=== PATIENT | female | born 1930 | race Caucasian/White ===

== ENCOUNTER 2018-01-09 12:56 | Observation (INO) ==
[2018-01-09 13:31] LABS: Basophils # 0.1 K/mm3 (0-0.2); Basophils % 0.8 % (0.1-2.0); Eosinophils # 0.2 K/mm3 (0.0-0.4); Eosinophils % 1.7 % (0.1-12.0); Hematocrit 31.4 % (37.0-47.0); Hemoglobin 10.4 g/dL (12.2-16.2); Lymphocytes # 1.1 K/mm3 (0.7-4.5); Lymphocytes % 12.9 K/mm3 (10-50); Mean Corpuscular HGB Conc 33.1 g/dL (31.8-35.4); Mean Corpuscular Hemoglobin 30.7 pg (27.0-31.2); Mean Corpuscular Volume 92.9 fl (81-99); Mean Platelet Volume 8.4 fl (7.4-10.4); Monocytes # 0.5 K/mm3 (0.1-1.0); Monocytes % 6.1 % (1.7-9.3); Neutrophils # 6.7 K/mm3 (1.8-7.8); Neutrophils % 78.4 % (37.0-80.0); Platelet Count 259 K/mm3 (142-424); Red Blood Count 3.38 M/mm3 (4.20-5.40); Red Cell Distribution Width 14.2 % (11.5-17.5); White Blood Count 8.6 K/mm3 (4.8-10.8)
--- NOTE | 2018-01-09 13:34 | Emergency Department Note ---
ED Disposition Clinical Impression: Lung nodule, Dehydration, Syncope, Renal insufficiency Clinical Impression: (Ruled Out): Pre-syncope Disposition: Still a Patient Condition on Discharge: Fair Referrals: Liu Norwood MD [Primary Care Provider] - - Critical Care Critical Care Time: No Attestation: On 01/09/18, the high probability of a clinically significant, sudden or life threatening deterioration of the following system(s) required my full and direct attention, intervention and personal management. The time I documented below is in addition to time spent performing reported procedures but includes the following listed in this critical care notation. Medical Decision Making - Tai Inquiry Pt receiving controlled substance: No Tai was queried for this patient: No Vital Signs: 01/09/18 12:57 01/09/18 14:26 01/09/18 15:00 Temperature 98.1 F 97.6 F 97.6 F Temperature Source Temporal Artery Scan Oral Oral Pulse Rate [Right Brachial] 89 75 75 Respiratory Rate 18 16 16 Blood Pressure [Right Arm] 80/48 112/67 112/67 Blood Pressure Mean [Right Arm] 58 82 82 Blood Pressure Source [Right Arm] Automatic Cuff Automatic Cuff Automatic Cuff Blood Pressure Position [Right Arm] Sitting Supine Sitting 02 Sat by Pulse Oximetry 98 98 98 Oxygen Delivery Method Room Air Room Air Room Air - Lab Data Lab Results 01/09/18 13:13: WBC 8.6, RBC 3.38 L, Hgb 10.4 L, Hct 31.4 L, MCV 92.9, MCH 30.7 , MCHC 33.1, RDW 14.2, Plt Count 259, MPV 8.4, Neut % (Auto) 78.4, Lymph % (Auto ) 12.9, [place] % (Auto) 6.1, Eos % (Auto) 1.7, Baso % (Auto) 0.8, Neut # (Auto) 6.7, Lymph # (Auto) 1.1, [place] # (Auto) 0.5, Eos # (Auto) 0.2, Baso # (Auto) 0.1 01/09/18 13:13: Sodium 141, Potassium 3.3 L, Chloride 102, Carbon Dioxide 30, Anion Gap 12.3, BUN 28 H, Creatinine 1.23 H, Estimated Creat Clear 32, Estimated GFR 41 L, Est GFR ( Amer) 50 L, Glucose 99, Calcium 8.0 L, Total Bilirubin 0.3, AST 15, ALT 10 L, Alkaline Phosphatase 150 H, Total Protein 5.7 L, Albumin 2.4 L, Globulin 3.3 H, Albumin/Globulin Ratio 0.7 L, Lipase 301 01/09/18 13:13: Total Creatine Kinase 27, CK-MB (CK-2) < 0.5, CK-MB (CK-2) Rel Index 1.9, Troponin I < 0.02 Result diagrams: 01/09/18 13:13 01/09/18 13:13 Orders (Tests/Meds): ED MEDICATIONS Discontinued Medications Generic Name Dose Route Start Last Admin Trade Name Freq PRN Reason Stop Dose Admin Sodium Chloride 500 mls @ 999 mls/hr 01/09/18 13:45 Sod Chlor 0.9% 1000ml Bag IV 01/09/18 14:15 .Q31M CECILY ORDERS Category Date Time Status Urinalysis and Microscopic Stat Lab 01/09/18 13:06 Ordered - Radiology Data #1 Image(s): Chest Image Reviewed: Yes I reviewed the patient's radiology image, Yes I have reviewed radiologist's interpretation Preliminary Findings: Normal/NAD - CT Data CT Scan: Head, C-Spine, Abdomen, Pelvis Time Received: 15:23 Preliminary Findings: Abnormal Findings Narrative: IMPRESSION: 1. No acute fracture. 2. Multilevel cervical spondylosis with degenerative disc disease and facet and uncovertebral hypertrophy. Please see above for detailed description at each level. 3. Prominent central disc osteophyte complex at C6-C7 causing severe canal stenosis. This is slightly eccentric towards the right. 4. Indeterminate 8 mm right upper lobe nodule. Consider [address] follow-up chest without and with contrast - ECG Data Tracing #1 Sinus rhythm 71/min, left axis deviation, no acute findings ECG initial impression date: 01/09/18 ECG initial impression time: 13:00 Medical Decision Narrative: The patient received IV fluids with improvement of her blood pressure. She had labs significant for renal insufficiency hypokalemia and dehydration. Spoke with her primary care physician Dr. norwood who agreed to admit her for observation and rule out VT protocol. He had an uneventful ED stay. Syncope HPI - General Chief Complaint: Weakness Stated Complaint: weakness,n/v Time Seen by Provider: 01/09/18 13:00 Mode of Arrival: Ambulatory Limitations: No Limitations Description of Symptoms (Recalled from ER Triage Doc. by RN): weakness, nausea and vomiting since this morning early. decr bp; possibly due to medicine change - History of Present Illness HPI narrative: 87 years old white female with history of shingles and postherpetic neuralgia. Recently she was given steroids by and she is on her last doses. She has developed nausea. Today while she was sitting with her daughter she felt hot nauseous head leaned back and felt like she is having presyncopal. There was no loss of consciousness she recovered immediately called the ambulance and was brought for evaluation. He denies having chest pain abdominal pain vomiting or diarrhea hematemesis coffee-ground emesis melanotic stool or bleeding per rectum. MD complaint: felt faint Onset (ago): minute(s) (30 minutes prior to arrival.) Duration of episode: 5 (No LOC. ) -: minutes(s) Prodromal symptoms: other (nausea. ) Witnessed: yes - by bystander (her daughter. ) Context: at rest Injuries sustained associated with event: none Current symptoms: none Treatments prior to arrival: other (steroids. ) - Related Data Home Medications Medication Instructions Recorded Confirmed Aspirin 81 mg PO DAILY 11/25/17 01/09/18 Ferrous Sulfate 325 mg PO BID 11/25/17 01/09/18 Furosemide [Furosemide 20mg Tab] 20 mg PO DAILY 11/25/17 01/09/18 Lisinopril [Lisinopril 5mg Tablet] 2.5 mg PO DAILY 11/25/17 01/09/18 predniSONE [Deltasone 1mg tablet] 1 mg PO DAILY 11/25/17 01/09/18 Cyanocobalamin/Folic Acid [B-12 1 each SL DAILY 01/09/18 01/09/18 1,000 Mcg Sub Tablet] Pregabalin [Lyrica 100mg Cap] 50 mg PO TID 01/09/18 01/09/18 Allergies Allergy/AdvReac Type Severity Reaction Status Date / Time No Known Allergies Allergy Verified 11/25/17 11:29 [facility] History I have reviewed the patient's past medical history: Yes Medical History: Reports:: Coronary Artery Disease, Gall Bladder Disease, Gastroesophageal Reflux Disease(GERD), Hypertension, Renal Insufficiency Denies:: Cancer, Cerebrovascular Accident, Dementia, Diabetes Mellitus Type 1 , Diabetes Mellitus Type 2, MRSA Other Medical History: Reports: Anemia, Arthritis Other Surgeries: Yes: Appendectomy, Colostomy, EGD, Other (Cholecystectomy) Amputation: No Fractures: No Comment: cholecystectomy - Social History Educational Level: Completed High School Smoking Status: Never smoker Alcohol Intake: never Occupational Status: retired Housing: other Household Members: children Comment: patient and son live in the same household. Other family members live close as well - Psychiatric History Expresses thoughts of harming self/others: None Suicide Plan Description: No Plan Family Hx:: Coronary Artery Disease, Hyperlipidemia, Hypertension ROS Obtained: Yes All systems reviewed & no additional complaints Physical Exam - General General appearance: alert, in no apparent distress - Head Head exam: atraumatic, normocephalic, normal inspection - Eye Eye exam: Present: normal appearance, PERRL, EOMI - ENT ENT exam: Present: normal exam, normal oropharynx, mucous membranes moist, TM's normal bilaterally, normal external ear exam - Neck Neck exam: Present: normal inspection, full ROM, trachea midline. Absent: tenderness, meningismus, lymphadenopathy - Chest Chest inspection: Present: normal inspection, symmetric chest wall rise. Absent : tenderness - Respiratory Respiratory exam: Present: normal lung sounds bilaterally. Absent: respiratory distress - Cardiovascular Cardiovascular exam: Present: regular rate, normal rhythm. Absent: JVD - Abdominal Exam Abdominal exam: Present: soft, normal bowel sounds. Absent: distention, tenderness, guarding, rebound, rigidity - Extremities Exam Extremities exam: Present: normal inspection, full ROM, normal capillary refill. Absent: calf tenderness - Back Exam Back exam: Present: normal inspection. Absent: tenderness - Neurological Exam Neurological exam: Present: alert, oriented X3, CN II-XII intact, motor sensory deficit, reflexes normal - Psychiatric Psychiatric exam: Present: normal affect, normal mood - Skin Skin exam: Present: warm, dry, intact, normal color - Lymphatic Lymphatic Findings: no adenopathy
[2018-01-09 13:40] LABS: Creatine Kinase 27 U/L (26-192); Potassium 3.3 mmoL/L (3.5-5.1)
[2018-01-09 14:08] LABS: Anion Gap 12.3 mEq/L (5-15)
[2018-01-09 14:09] LABS: Albumin Level 2.4 gm/dL (3.4-5.0); Albumin/Globulin Ratio 0.7 (1.1-1.8); Bilirubin,Total 0.3 mg/dL (0.2-1.0); Globulin 3.3 gm/dl (1.3-3.2); Total Protein,Serum 5.7 gm/dL (6.4-8.2)
--- NOTE | 2018-01-09 16:24 | History & Physical Report ---
*Admission Date: 01/09/18 *Chief complaint: near syncope *History of present illness: Ms. Garcia is an 87yo female who has recently had shingles of the right chest and axillary area. She has had postherpetic neuralgia and has been on gabapentin, but is now on lyrica because the gabapentin was not controlling her pain. She was also recently started on prednisone on 12/31/17. Her daughter states she fell getting off of the toilet this am and landed on her face. The patient states she did not have a syncopal episode and remembers talking to her son to have him come and get her up off the floor. She states she did not hurt anything in the fall other than the fact she had a abrasion on the left forearm that was cleaned and a dressing was applied. She went back to sleep and seemed fine this am. Her daughter states she used her walker and walked outside and was sitting with them when all at once her eyes rolled back. Her daughter states she doesn't think she actually passed out because she did respond as soon as they grabbed her shoulder and said her name. They are concerned some of the medications she has been taking could be causing this. EMS was called and they did tell the family her BP was low. She was evaluated in the ER and will be admitted overnight for observation and IVF's as she appeared slightly dehydrated. [facility] History Medical History: Reports:: Coronary Artery Disease, Gall Bladder Disease, Gastroesophageal Reflux Disease(GERD), Hypertension, Renal Insufficiency Denies:: Cancer, Cerebrovascular Accident, Dementia, Diabetes Mellitus Type 1 , Diabetes Mellitus Type 2, MRSA Other Medical History: Reports: Anemia, Arthritis Comment: postherpetic neuralgia Other Surgeries: Yes: Appendectomy, Cholecystectomy, Colonoscopy, EGD Amputation: No Fractures: No - *Social History Educational Level: Completed High School Smoking Status: Never smoker Alcohol Intake: never Occupational Status: retired Housing: other Household Members: children - Psychiatric History Expresses thoughts of harming self/others: None Suicide Plan Description: No Plan *Family Hx:: Coronary Artery Disease, Hyperlipidemia, Hypertension Review of Systems - Constitutional Denies body ache(s), Denies fever(s), Denies weakness - Eyes Denies blurry vision, Denies double vision - ENT Denies nasal congestion, Denies sore throat - *Cardiovascular Denies chest pain, Denies shortness of breath, Denies fast heart rate - *Respiratory Denies cough, Denies shortness of breath - *Gastrointestinal Reports nausea, Denies abdominal pain, Denies loose stools, Denies vomiting - *Genitourinary Denies difficulty urinating, Denies painful urination - *Musculoskeletal Denies joint pain, Denies body aches - *Neurologic Denies confusion, Denies headache(s), Denies seizure-like activity, Denies dizziness, Denies weakness Meds Home Medications Medication Instructions Recorded Confirmed Type Aspirin 81 mg PO DAILY 11/25/17 01/09/18 History Ferrous Sulfate 325 mg PO BID 11/25/17 01/09/18 History Furosemide [Furosemide 20mg Tab] 20 mg PO DAILY 11/25/17 01/09/18 History Lisinopril [Lisinopril 5mg Tablet] 2.5 mg PO DAILY 11/25/17 01/09/18 History predniSONE [Deltasone 1mg tablet] 1 mg PO DAILY 11/25/17 01/09/18 History Cyanocobalamin/Folic Acid [B-12 1 each SL DAILY 01/09/18 01/09/18 History 1,000 Mcg Sub Tablet] Pregabalin [Lyrica 100mg Cap] 50 mg PO TID 01/09/18 01/09/18 History Allergies Allergy/AdvReac Type Severity Reaction Status Date / Time No Known Allergies Allergy Verified 11/25/17 11:29 Exam Vital signs and Labs for Last 24 Hours: Temp Pulse Resp BP Pulse Ox 97.6 F 75 16 112/67 98 01/09/18 16:08 01/09/18 16:08 01/09/18 16:08 01/09/18 16:08 01/09/18 15:00 Laboratory Results - last 24 hr 01/09/18 13:13: WBC 8.6, RBC 3.38 L, Hgb 10.4 L, Hct 31.4 L, MCV 92.9, MCH 30.7 , MCHC 33.1, RDW 14.2, Plt Count 259, MPV 8.4, Neut % (Auto) 78.4, Lymph % (Auto ) 12.9, [place] % (Auto) 6.1, Eos % (Auto) 1.7, Baso % (Auto) 0.8, Neut # (Auto) 6.7, Lymph # (Auto) 1.1, [place] # (Auto) 0.5, Eos # (Auto) 0.2, Baso # (Auto) 0.1 01/09/18 13:13: Sodium 141, Potassium 3.3 L, Chloride 102, Carbon Dioxide 30, Anion Gap 12.3, BUN 28 H, Creatinine 1.23 H, Estimated Creat Clear 32, Estimated GFR 41 L, Est GFR ( Amer) 50 L, Glucose 99, Calcium 8.0 L, Total Bilirubin 0.3, AST 15, ALT 10 L, Alkaline Phosphatase 150 H, Total Protein 5.7 L, Albumin 2.4 L, Globulin 3.3 H, Albumin/Globulin Ratio 0.7 L, Lipase 301 01/09/18 13:13: Total Creatine Kinase 27, CK-MB (CK-2) < 0.5, CK-MB (CK-2) Rel Index 1.9, Troponin I < 0.02 I & O for Last 24 hours: Intake & Output 01/07/18 01/08/18 01/09/18 01/10/18 11:59 11:59 11:59 11:59 Weight 132 lb - Constitutional no acute distress - *Routine HEENT Exam Head: Present: normocephalic, atraumatic Eye: Present: EOMI, PERRL ENT: Present: mucous membranes moist - *Routine Neck Exam Present: supple, full ROM - *Routine Respiratory Exam Present: CTA bilaterally - *Routine Cardiovascular Exam Present: RRR - *Routine Abdominal Exam Present: soft, normoactive bowel sounds. Absent: tenderness - *Routine Extremities Exam Absent: edema - *Routine Skin Exam Comments: abrasion left forearm - *Routine Neurological Exam Present: alert, oriented X3, CN II-XII intact. Absent: sensory deficit, motor deficit H&P: Result - Labs Labs: - Impressions Abdomen/pelvis CT 1. Mild prominence of the pancreatic tail. This is a question clinical significance. Mild pancreatitis is a consideration. Please correlate with appropriate laboratory values. 2. Mild prominence of the right renal collecting system etiology indeterminate. 3. Otherwise negative unenhanced CT scan abdomen pelvis C-Spine CT 1. No acute fracture. 2. Multilevel cervical spondylosis with degenerative disc disease and facet and uncovertebral hypertrophy. Please see above for detailed description at each level. 3. Prominent central disc osteophyte complex at C6-C7 causing severe canal stenosis. This is slightly eccentric towards the right. 4. Indeterminate 8 mm right upper lobe nodule. Consider [address] follow-up chest without and with contrast CXR - nothing acute Head CT - nothing acute Assessment and Plan (1) Near syncope Current visit: Yes Status: Acute Category: Medical Code(s): R55 - Syncope and collapse (2) Lung nodule Current visit: Yes Status: Acute Category: Medical Code(s): R91.1 - Solitary pulmonary nodule (3) Renal insufficiency Current visit: Yes Status: Acute Category: Medical Code(s): N28.9 - Disorder of kidney and ureter, unspecified (4) Fall Current visit: No Status: Acute Qualifiers: Encounter type: initial encounter Qualified Code(s): W19.XXXA - Unspecified fall, initial encounter Category: Medical Code(s): W19.XXXA - Unspecified fall, initial encounter (5) Arthritis Current visit: No Status: Chronic Category: Medical Code(s): M19.90 - Unspecified osteoarthritis, unspecified site (6) GERD (gastroesophageal reflux disease) Current visit: No Status: Chronic Category: Medical Code(s): K21.9 - Gastro-esophageal reflux disease without esophagitis (7) HTN (hypertension) Current visit: No Status: Chronic Category: Medical Code(s): I10 - Essential (primary) hypertension (8) Hypokalemia Current visit: Yes Status: Acute Category: Medical Code(s): E87.6 - Hypokalemia (9) Dehydration Current visit: Yes Status: Acute Category: Medical Code(s): E86.0 - Dehydration - Assessment and plan all Dx Assessment and Plan for all problems:: The patient's BP improved with hydration. She feels fine at this time. She will be admitted for observation. Will place a court monitor.
[2018-01-10 04:27] LABS: Basophils # 0.1 K/mm3 (0-0.2); Basophils % 0.8 % (0.1-2.0); Eosinophils # 0.1 K/mm3 (0.0-0.4); Eosinophils % 2.2 % (0.1-12.0); Hematocrit 32.1 % (37.0-47.0); Hemoglobin 10.2 g/dL (12.2-16.2); Lymphocytes # 1.3 K/mm3 (0.7-4.5); Lymphocytes % 22.3 K/mm3 (10-50); Mean Corpuscular HGB Conc 31.6 g/dL (31.8-35.4); Mean Corpuscular Hemoglobin 29.3 pg (27.0-31.2); Mean Corpuscular Volume 92.7 fl (81-99); Mean Platelet Volume 8.8 fl (7.4-10.4); Monocytes # 0.4 K/mm3 (0.1-1.0); Monocytes % 6.9 % (1.7-9.3); Neutrophils # 3.9 K/mm3 (1.8-7.8); Neutrophils % 67.8 % (37.0-80.0); Platelet Count 237 K/mm3 (142-424); Red Blood Count 3.46 M/mm3 (4.20-5.40); White Blood Count 5.8 K/mm3 (4.8-10.8)
[2018-01-10 04:50] LABS: Anion Gap 8.7 mEq/L (5-15); Potassium 3.7 mmoL/L (3.5-5.1)
--- NOTE | 2018-01-10 07:22 | Pharmacy Consult Notes ---
[facility] Pharmacy VTE Monitoring - Patient Demographics Admission date: 01/09/18 Report Date: 01/10/18 Time: 07:21 Allergies/Adverse Reactions: Patient Allergies No Known Allergies Allergy (Verified 11/25/17 11:29) Height: 1.63 m Weight: 53.099 kg Patient Problems: Current Active Problems Lung nodule (Acute) Dehydration (Acute) Syncope (Acute) Renal insufficiency (Acute) Near syncope (Acute) Hypokalemia (Acute) - VTE Risk Labs: VTE Related Lab Results Hgb 10.2 g/dL (12.2-16.2) L 01/10/18 04:20 Hct 32.1 % (37.0-47.0) L 01/10/18 04:20 Plt Count 237 K/mm3 (142-424) 01/10/18 04:20 BUN 26 mg/dL (7-18) H 01/10/18 04:20 Creatinine 1.20 mg/dL (0.55-1.02) H 01/10/18 04:20 Estimated Creat Clear 29 mL/min (0-300) 01/10/18 04:20 Was VTE Risk Assessment Performed: Yes VTE Score: 3 VTE Risk Level: Low Risk Clinical Trial Participant: No - Prophylaxis VTE Prophylaxis Ordered?: Yes Types of VTE Prophylaxis: TEDS Knee High
--- NOTE | 2018-01-10 08:46 | Progress Note ---
Internal Medicine - PN: Subj *Date: 01/10/18 *Time: 08:44 Interval history: Patient states she feels fine this a.m. She has had no more presyncopal episodes. She denies any pain. She states she slept well and ate a good breakfast. Exam Vital signs and Labs for Last 24 Hours: Temp Pulse Resp BP Pulse Ox 97.8 F 79 20 124/62 98 01/10/18 04:00 01/10/18 06:00 01/10/18 04:00 01/10/18 04:00 01/10/18 04:00 Laboratory Results - last 24 hr 01/09/18 13:13: WBC 8.6, RBC 3.38 L, Hgb 10.4 L, Hct 31.4 L, MCV 92.9, MCH 30.7 , MCHC 33.1, RDW 14.2, Plt Count 259, MPV 8.4, Neut % (Auto) 78.4, Lymph % (Auto ) 12.9, [place] % (Auto) 6.1, Eos % (Auto) 1.7, Baso % (Auto) 0.8, Neut # (Auto) 6.7, Lymph # (Auto) 1.1, [place] # (Auto) 0.5, Eos # (Auto) 0.2, Baso # (Auto) 0.1 01/09/18 13:13: Sodium 141, Potassium 3.3 L, Chloride 102, Carbon Dioxide 30, Anion Gap 12.3, BUN 28 H, Creatinine 1.23 H, Estimated Creat Clear 32, Estimated GFR 41 L, Est GFR ( Amer) 50 L, Glucose 99, Calcium 8.0 L, Total Bilirubin 0.3, AST 15, ALT 10 L, Alkaline Phosphatase 150 H, Total Protein 5.7 L, Albumin 2.4 L, Globulin 3.3 H, Albumin/Globulin Ratio 0.7 L, Lipase 301 01/09/18 13:13: Total Creatine Kinase 27, CK-MB (CK-2) < 0.5, CK-MB (CK-2) Rel Index 1.9, Troponin I < 0.02 01/09/18 16:38: Troponin I < 0.02 01/09/18 22:10: Troponin I 0.02 01/10/18 04:20: Troponin I < 0.02 01/10/18 04:20: WBC 5.8 D, RBC 3.46 L, Hgb 10.2 L, Hct 32.1 L, MCV 92.7, MCH 29.3, MCHC 31.6 L, RDW 14.0, Plt Count 237, MPV 8.8, Neut % (Auto) 67.8, Lymph % (Auto) 22.3, [place] % (Auto) 6.9, Eos % (Auto) 2.2, Baso % (Auto) 0.8, Neut # ( Auto) 3.9, Lymph # (Auto) 1.3, [place] # (Auto) 0.4, Eos # (Auto) 0.1, Baso # (Auto ) 0.1 01/10/18 04:20: Sodium 140, Potassium 3.7, Chloride 105, Carbon Dioxide 30, Anion Gap 8.7, BUN 26 H, Creatinine 1.20 H, Estimated Creat Clear 29, Estimated GFR 43 L, Est GFR ( Amer) 52 L, Glucose 109 H, Magnesium 1.9 I & O for Last 24 hours: Intake & Output 01/07/18 01/08/18 01/09/18 01/10/18 11:59 11:59 11:59 11:59 Intake Total 1090 / 1090 Output Total 600 / 600 Balance 490 / 490 Weight 117 lb 1 oz - Constitutional no acute distress - *Routine Respiratory Exam Present: CTA bilaterally - *Routine Cardiovascular Exam Present: RRR - *Routine Abdominal Exam Present: soft, normoactive bowel sounds. Absent: tenderness - *Routine Extremities Exam Absent: edema Assessment and Plan (1) Near syncope Current visit: Yes Status: Acute Category: Medical Code(s): R55 - Syncope and collapse (2) Lung nodule Current visit: Yes Status: Acute Category: Medical Code(s): R91.1 - Solitary pulmonary nodule (3) Renal insufficiency Current visit: Yes Status: Acute Category: Medical Code(s): N28.9 - Disorder of kidney and ureter, unspecified (4) Fall Current visit: No Status: Acute Qualifiers: Encounter type: initial encounter Qualified Code(s): W19.XXXA - Unspecified fall, initial encounter Category: Medical Code(s): W19.XXXA - Unspecified fall, initial encounter (5) Arthritis Current visit: No Status: Chronic Category: Medical Code(s): M19.90 - Unspecified osteoarthritis, unspecified site (6) GERD (gastroesophageal reflux disease) Current visit: No Status: Chronic Category: Medical Code(s): K21.9 - Gastro-esophageal reflux disease without esophagitis (7) HTN (hypertension) Current visit: No Status: Chronic Category: Medical Code(s): I10 - Essential (primary) hypertension (8) Hypokalemia Current visit: Yes Status: Acute Category: Medical Code(s): E87.6 - Hypokalemia (9) Dehydration Current visit: Yes Status: Acute Category: Medical Code(s): E86.0 - Dehydration - Assessment and plan all Dx Assessment and Plan for all problems:: Patient has done well throughout the night. Possible discharge home today. Will discuss with Dr. Edward.
[2018-01-10 09:27] VITALS: BP 126/66
--- NOTE | 2018-01-12 22:03 | Discharge Summary ---
General - General Admission date:: 01/09/18 Discharge date: 01/10/18 HPI HPI: Ms. Garcia is an 87yo female who has recently had shingles of the right chest and axillary area. She has had postherpetic neuralgia and has been on gabapentin, but is now on lyrica because the gabapentin was not controlling her pain. She was also recently started on prednisone on 12/31/17. Her daughter states she fell getting off of the toilet this am and landed on her face. The patient states she did not have a syncopal episode and remembers talking to her son to have him come and get her up off the floor. She states she did not hurt anything in the fall other than the fact she had a abrasion on the left forearm that was cleaned and a dressing was applied. She went back to sleep and seemed fine this am. Her daughter states she used her walker and walked outside and was sitting with them when all at once her eyes rolled back. Her daughter states she doesn't think she actually passed out because she did respond as soon as they grabbed her shoulder and said her name. They are concerned some of the medications she has been taking could be causing this. EMS was called and they did tell the family her BP was low. She was evaluated in the ER and will be admitted overnight for observation and IVF's as she appeared slightly dehydrated. Hospital Course Hospital Course: The patient's imaging showed nothing acute. Her BP improved with rehydration. She did well overnight and had no further presyncopal episodes. She was stable to be discharged home. Objective Vital signs: Temp Pulse Resp BP Pulse Ox 97.8 F 60 18 126/66 98 01/10/18 08:00 01/10/18 10:00 01/10/18 08:00 01/10/18 08:00 01/10/18 08:00 Narrative: - Constitutional no acute distress - *Routine HEENT Exam Head: Present: normocephalic, atraumatic Eye: Present: EOMI, PERRL ENT: Present: mucous membranes moist - *Routine Neck Exam Present: supple, full ROM - *Routine Respiratory Exam Present: CTA bilaterally - *Routine Cardiovascular Exam Present: RRR - *Routine Abdominal Exam Present: soft, normoactive bowel sounds. Absent: tenderness - *Routine Extremities Exam Absent: edema - *Routine Skin Exam Comments: abrasion left forearm - *Routine Neurological Exam Present: alert, oriented X3, CN II-XII intact. Absent: sensory deficit, motor deficit DS: Diagnosis - Discharge Diagnosis (1) Near syncope Status: Acute (2) Lung nodule Status: Acute (3) Renal insufficiency Status: Acute (4) Fall Status: Acute (5) Arthritis Status: Chronic (6) GERD (gastroesophageal reflux disease) Status: Chronic (7) HTN (hypertension) Status: Chronic (8) Hypokalemia Status: Acute (9) Dehydration Status: Acute Discharge Plan - Patient Discharge Instructions ACTIVITY: Continue current activity DIET: continue same diet Patient Instructions: DI for Syncope in Adults (Fainting) - Follow up Plan Follow up with: Liu Edward MD [Primary Care Provider] - 1 week Disposition: Home, Self-Prison Medications: Home Medications Medication Instructions Recorded Confirmed Type Aspirin 81 mg PO DAILY 11/25/17 01/09/18 History Ferrous Sulfate 325 mg PO BID 11/25/17 01/09/18 History Furosemide [Furosemide 20mg Tab] 20 mg PO DAILY 11/25/17 01/09/18 History Lisinopril [Lisinopril 5mg Tablet] 2.5 mg PO DAILY 11/25/17 01/09/18 History Cyanocobalamin/Folic Acid [B-12 1 each SL DAILY 01/09/18 01/09/18 History 1,000 Mcg Sub Tablet] Pregabalin [Lyrica 100mg Cap] 50 mg PO TID 01/09/18 01/09/18 History Gabapentin [Gabapentin 100mg Cap] 200 mg PO TID 01/10/18 01/10/18 History predniSONE [Deltasone 1mg tablet] 1 mg PO DAILY 01/10/18 01/10/18 History Prescriptions/Medication Reconciliation: Continue Lisinopril [Lisinopril 5mg Tablet] 2.5 mg PO DAILY Furosemide [Furosemide 20mg Tab] 20 mg PO DAILY Ferrous Sulfate 325 mg PO BID Cyanocobalamin/Folic Acid [B-12 1,000 Mcg Sub Tablet] 1 each SL DAILY Gabapentin [Gabapentin 100mg Cap] 200 mg PO TID Aspirin 81 mg PO DAILY Pregabalin [Lyrica 100mg Cap] 50 mg PO TID predniSONE [Deltasone 1mg tablet] 1 mg PO DAILY
== END 2018-01-10 10:25 | disposition home or self-care (01) ==
LOC: 2ND 12:56 → ER 12:56 → 2ND 16:04
PROVIDERS: ADMIT Family Medicine; ATTEND Family Medicine

== ENCOUNTER 2018-12-08 16:47 | Observation (INO) ==
--- NOTE | 2018-12-08 17:02 | Emergency Department Note ---
ED Disposition Condition on Discharge: Good - Critical Care Critical Care Time: No <Rip Crump - Last Filed: 12/08/18 20:20> <Jovani Bryant - Last Filed: 12/08/18 21:16> Clinical Impression: UTI due to extended-spectrum beta lactamase (ESBL) producing Escherichia coli, Renal insufficiency Abdominal pain Qualifiers: Abdominal location: unspecified location Qualified Code(s): R10.9 - Unspecified abdominal pain Disposition: Admitted as Observation Referrals: Liu Edward MD [Primary Care Provider] - Attestation: On 12/08/18, the high probability of a clinically significant, sudden or life threatening deterioration of the following system(s) required my full and direct attention, intervention and personal management. The time I documented below is in addition to time spent performing reported procedures but includes the following listed in this critical care notation. Medical Decision Making - Medical Records Medical records reviewed: Yes: I reviewed the patient's medical records. - Tai Inquiry Pt receiving controlled substance: No - Lab Data Result diagrams: 12/08/18 17:08 12/08/18 17:08 <Rip Crump - Last Filed: 12/08/18 20:20> - Lab Data Result diagrams: 12/08/18 17:08 12/08/18 17:08 - Physician Consults Physician Consulted: douglas Reason -: Admission <Jovani Bryant - Last Filed: 12/08/18 21:16> Vital Signs: 12/08/18 16:52 12/08/18 17:05 12/08/18 17:17 Temperature 98.0 F Temperature Source Oral Pulse Rate [Right Radial] 61 64 68 Respiratory Rate 18 16 17 Blood Pressure [Right Arm] 121/64 129/59 L Blood Pressure [Right Radial Artery] 117/64 Blood Pressure Mean [Right Arm] 83 82 Blood Pressure Mean [Right Radial Artery] 81 Blood Pressure Source [Right Arm] Automatic Cuff Automatic Cuff Blood Pressure Source [Right Radial Artery] Automatic Cuff Blood Pressure Position [Right Arm] Sitting Sitting Blood Pressure Position [Right Radial Artery] Sitting 02 Sat by Pulse Oximetry 100 100 100 Oxygen Delivery Method Room Air Room Air Room Air 12/08/18 17:30 12/08/18 18:00 12/08/18 19:39 Temperature Temperature Source Pulse Rate [Right Radial] 63 67 71 Respiratory Rate 15 18 20 Blood Pressure [Right Arm] 133/68 145/67 H 187/86 H Blood Pressure [Right Radial Artery] Blood Pressure Mean [Right Arm] 89 93 119 Blood Pressure Mean [Right Radial Artery] Blood Pressure Source [Right Arm] Automatic Cuff Automatic Cuff Automatic Cuff Blood Pressure Source [Right Radial Artery] Blood Pressure Position [Right Arm] Sitting Supine Sitting Blood Pressure Position [Right Radial Artery] 02 Sat by Pulse Oximetry 100 97 99 Oxygen Delivery Method Room Air Room Air - Lab Data Lab Results 12/08/18 17:08: WBC 10.2, RBC 4.00 L, Hgb 11.9 L, Hct 35.3 L, MCV 88.1, MCH 29.7, MCHC 33.7, RDW 13.1, Plt Count 314, MPV 8.1, Neut % (Auto) 87.8 H, Lymph % (Auto) 7.3 L, [place] % (Auto) 3.1, Eos % (Auto) 1.3, Baso % (Auto) 0.5, Neut # (Auto) 8.9 H, Lymph # (Auto) 0.7, [place] # (Auto) 0.3, Eos # (Auto) 0.1, Baso # (Auto) 0.1, Total Counted 100, Neutrophils % (Manual) 90 H, Lymphocytes % (Manual) 8 L, Monocytes % (Manual) 2, Platelet Estimate Normal, RBC Morphology Normal 12/08/18 17:08: Sodium 138, Potassium 4.7, Chloride 100, Carbon Dioxide 27, Anion Gap 15.7 H, BUN 33 H, Creatinine 1.71 H, Estimated Creat Clear 19, Estimated GFR 28 L, Est GFR ( Amer) 34 L, Glucose 135 H, Calcium 8.8, Total Bilirubin 0.3, AST 19, ALT 11 L, Alkaline Phosphatase 136 H, Total Protein 7.3, Albumin 3.6, Globulin 3.7 H, Albumin/Globulin Ratio 1.0 L, Lipase 394 H 12/08/18 17:08: Lactate 2.6 H 12/08/18 17:30: Urine Color Yellow, Urine Appearance Clear, Urine pH 6.0, Ur Specific [place] 1.010, Urine Protein Negative, Urine Glucose (UA) Negative, Urine Ketones Negative, Urine Blood Trace-l, Urine Nitrate Negative, Urine Bilirubin Negative, Urine Urobilinogen 0.2, Ur Leukocyte Esterase Negative, Urine RBC Occasional, Urine WBC Occasional, Urine Bacteria Trace Orders (Tests/Meds): ED MEDICATIONS Generic Name Dose Route Start Last Admin Trade Name Nikolas PRN Reason Stop Dose Admin Sodium Chloride 1,000 mls @ 999 mls/hr 12/08/18 17:00 12/08/18 17:35 Sod Chlor 0.9% 1000ml Bag IV 12/08/18 18:00 999 mls/hr .Q1H1M CECILY Administration ORDERS Category Date Time Status CT abdomen pelvis wo con Stat Cat Scan 12/08/18 19:20 Taken Lactic Acid Follow Up (RFLX 1) Stat Lab 12/08/18 21:10 Ordered Blood Culture Stat Micro 12/08/18 17:08 Received General Adult HPI - General Source of Information: Patient <Rip Crump - Last Filed: 12/08/18 20:20> <Jovani Bryant - Last Filed: 12/08/18 21:16> - General Stated complaint: dizziness Time Seen by Provider: 12/08/18 16:59 - History of Present Illness HPI narrative: mild to mod abdominal cramps and diarrhea w/o blood today after taking antibiotics for uti, +general weakness and dizzy, no loc, no fever, no emesis ( Rip Crump) - Related Data Home Medications Medication Instructions Recorded Confirmed Aspirin 81 mg PO DAILY 11/25/17 12/08/18 Ferrous Sulfate 325 mg PO BID 11/25/17 12/08/18 Furosemide [Furosemide 20mg Tab] 20 mg PO DAILY 11/25/17 12/08/18 Lisinopril [Lisinopril 5mg Tablet] 2.5 mg PO DAILY 11/25/17 12/08/18 Cyanocobalamin/Folic Acid [B-12 1 each SL DAILY 01/09/18 12/08/18 1,000 Mcg Sub Tablet] Gabapentin [Gabapentin 100mg Cap] 200 mg PO TID 01/10/18 12/08/18 Benzonatate [Benzonatate 200mg Cap] 200 mg PO TID 11/30/18 12/08/18 Cetirizine HCl [Zyrtec] 10 mg PO DAILY 11/30/18 12/08/18 Citalopram Hydrobromide [Celexa 10 mg PO DAILY 11/30/18 12/08/18 10mg Tablet] Potassium Chloride [Klor-Con] 20 meq PO DAILY 11/30/18 12/08/18 predniSONE [Prednisone 2.5mg 2.5 mg PO DAILY 11/30/18 12/08/18 Tab] Previous Rx's Medication Instructions Recorded Meclizine HCl [Meclizine 25mg Tab] 25 mg PO Q8HP PRN #30 tab 11/01/18 Allergies Allergy/AdvReac Type Severity Reaction Status Date / Time No Known Allergies Allergy Verified 11/25/17 11:29 [facility] [place] History Medical History: Reports:: Coronary Artery Disease, Gall Bladder Disease, Gastroesophageal Reflux Disease(GERD), Hypertension, Renal Insufficiency Denies:: Cancer, Cerebrovascular Accident, Dementia, Diabetes Mellitus Type 1, Diabetes Mellitus Type 2, MRSA Other Medical History: Reports: Anemia, Arthritis Comment: postherpetic neuralgia Other Surgeries: Yes: Appendectomy, Cholecystectomy, Colonoscopy, Colostomy, EGD, Other (Cholecystectomy) Amputation: No Fractures: No Comment: cholecystectomy - Social History Smoking Status: Never smoker Alcohol Intake: never Occupational Status: retired Housing: other Household Members: children Comment: patient and son live in the same household. Other family members live close as well Family Hx:: Coronary Artery Disease, Hyperlipidemia, Hypertension <Rip Crump - Last Filed: 12/08/18 20:20> - Hepatitis A Screen Attestation statement:: This patient has been screened for Hepatitis A risk factors. ROS Obtained: Yes Systems reviewed as appropriate & no additional complaints - Constitutional Constitutional: Reports fatigue, Denies fever(s) - Eyes Eyes: Denies change in vision - ENT Ears, Nose, Mouth, and Throat: Denies dry mouth - Cardiovascular Cardiovascular: Denies chest pain - Respiratory Respiratory: No dyspnea - Gastrointestinal Gastrointestingal: Reports: abdominal pain, diarrhea - Musculoskeletal Musculoskeletal: Reports muscle aches - Integumentary/Breasts Skin/Breast: Denies rash - Neurologic Neurologic: Reports dizziness, Denies focal weakness <Rip Crump - Last Filed: 12/08/18 20:20> Physical Exam - General General appearance: alert, in no apparent distress - Head Head exam: atraumatic - Eye Eye exam: Present: other (anisocoria not new) - ENT ENT exam: Present: mucous membranes moist - Neck Neck exam: Present: normal inspection - Chest Chest inspection: Present: normal inspection - Respiratory Respiratory exam: Present: normal lung sounds bilaterally - Cardiovascular Cardiovascular exam: Present: regular rate, normal rhythm - Abdominal Exam Abdominal exam: Present: soft. Absent: tenderness, rebound - Extremities Exam Extremities exam: Present: normal inspection - Back Exam Back exam: Absent: vertebral tenderness - Neurological Exam Neurological exam: Present: alert, oriented X3 - Psychiatric Psychiatric exam: Present: normal affect, normal mood - Skin Skin exam: Present: warm, dry <Rip Crump - Last Filed: 12/08/18 20:20>
[2018-12-08 17:28] LABS: Basophils # 0.1 K/mm3 (0-0.2); Basophils % 0.5 % (0.1-2.0); Eosinophils # 0.1 K/mm3 (0.0-0.4); Eosinophils % 1.3 % (0.1-12.0); Hematocrit 35.3 % (37.0-47.0); Hemoglobin 11.9 g/dL (12.2-16.2); Lymphocytes # 0.7 K/mm3 (0.7-4.5); Lymphocytes % 7.3 % (10-50); Mean Corpuscular HGB Conc 33.7 g/dL (31.8-35.4); Mean Corpuscular Hemoglobin 29.7 pg (27.0-31.2); Mean Corpuscular Volume 88.1 fl (81-99); Mean Platelet Volume 8.1 fl (7.4-10.4); Monocytes # 0.3 K/mm3 (0.1-1.0); Monocytes % 3.1 % (1.7-9.3); Neutrophils # 8.9 K/mm3 (1.8-7.8); Neutrophils % 87.8 % (37.0-80.0); Platelet Count 314 K/mm3 (142-424); Red Cell Distribution Width 13.1 % (11.5-17.5); White Blood Count 10.2 K/mm3 (4.8-10.8)
[2018-12-08 17:35] LABS: Microscopic, Urine URINE MICROSCOPIC (MICROSCOPIC)
[2018-12-08 17:39] LABS: Albumin Level 3.6 gm/dL (3.4-5.0); Anion Gap 15.7 mEq/L (5-15); Bilirubin,Total 0.3 mg/dL (0.2-1.0); Calcium 8.8 mg/dL (8.5-10.1); Globulin 3.7 gm/dl (1.3-3.2); Potassium 4.7 mmoL/L (3.5-5.1); Total Protein,Serum 7.3 gm/dL (6.4-8.2)
[2018-12-08 17:46] LABS: Appearance,Urine CLEAR (Clear); Bilirubin,Urine Negative (Negative); Blood, Urine TRACE-L (Negative); Color,Urine YELLOW (Yellow); Glucose,Urine (UA) Negative (Negative); Ketones,Urine Negative (Negative); Leukocyte Esterase,Urine Negative (Negative); Protein,Urine Negative (Negative); Urobilinogen,Urine 0.2 EU/dl (0.2)
[2018-12-08 17:54] LABS: Bacteria,Urine Trace /lpf; RBC,Urine Occasional #/hpf (0-3); WBC,Urine Occasional #/hpf (0-3)
[2018-12-08 18:00] LABS: Lymphocytes % 8 % (10-50); Monocytes % 2 % (2-9); Neutrophils % 90 % (42-76); RBC Morphology Normal; Total Cells Counted 100
[2018-12-09 06:27] LABS: Basophils % 0.7 % (0.1-2.0); Eosinophils # 0.1 K/mm3 (0.0-0.4); Eosinophils % 2.2 % (0.1-12.0); Hematocrit 33.1 % (37.0-47.0); Lymphocytes # 1.3 K/mm3 (0.7-4.5); Lymphocytes % 20.5 % (10-50); Mean Corpuscular HGB Conc 32.1 g/dL (31.8-35.4); Mean Corpuscular Hemoglobin 28.5 pg (27.0-31.2); Mean Corpuscular Volume 88.8 fl (81-99); Mean Platelet Volume 7.7 fl (7.4-10.4); Monocytes # 0.3 K/mm3 (0.1-1.0); Monocytes % 5.4 % (1.7-9.3); Neutrophils # 4.4 K/mm3 (1.8-7.8); Neutrophils % 71.3 % (37.0-80.0); Platelet Count 240 K/mm3 (142-424); Red Blood Count 3.73 M/mm3 (4.20-5.40); Red Cell Distribution Width 13.1 % (11.5-17.5); White Blood Count 6.2 K/mm3 (4.8-10.8)
[2018-12-09 06:34] LABS: Anion Gap 11.4 mEq/L (5-15); Calcium 8.3 mg/dL (8.5-10.1); Potassium 4.4 mmoL/L (3.5-5.1)
[2018-12-09 07:05] LABS: Hemoglobin 10.6 g/dL (12.2-16.2)
--- NOTE | 2018-12-09 07:25 | Pharmacy Consult Notes ---
[facility] Pharmacy VTE Monitoring - Patient Demographics Admission date: 12/08/18 Report Date: 12/09/18 Time: 07:25 Allergies/Adverse Reactions: Patient Allergies No Known Allergies Allergy (Verified 11/25/17 11:29) Height: 1.6 m Weight: 50.15 kg Patient Problems: Current Active Problems Renal insufficiency (Acute) Abdominal pain (Acute) UTI due to extended-spectrum beta lactamase (ESBL) producing Escherichia coli (Acute) - VTE Risk Labs: VTE Related Lab Results Hgb 10.6 g/dL (12.2-16.2) L D 12/09/18 06:16 Hct 33.1 % (37.0-47.0) L 12/09/18 06:16 Plt Count 240 K/mm3 (142-424) 12/09/18 06:16 BUN 26 mg/dL (7-18) H 12/09/18 06:16 Creatinine 1.41 mg/dL (0.55-1.02) H 12/09/18 06:16 Estimated Creat Clear 23 mL/min (50-200) 12/09/18 06:16 Was VTE Risk Assessment Performed: Yes VTE Score: 2 VTE Risk Level: Very Low Risk - Prophylaxis VTE Prophylaxis Ordered?: Yes Types of VTE Prophylaxis: TEDS Knee High Location of Applied Device: Bilateral Lower Extremeties - VTE Diagnosis Confirmed Treatment or plan recommended: Continue Current Treatment
--- NOTE | 2018-12-09 08:28 | History & Physical Report ---
*Admission Date: 12/08/18 *Chief complaint: weakness; dizziness *History of present illness: Ms. Garcia is an 88-year-old female with history of depression, arthritis, hypertension, chronic anemia, type 2 diabetes mellitus with diabetic chronic kidney disease, adrenal insufficiency, and gastritis who brought to the emergency room by her children due to their concern with her progressive weakness, dizziness, and intolerance of new antibiotic for UTI. Patient states she came because her children. She denies fever, abdominal pain, chest pain, shortness of breath, nausea and vomiting. She states that she did have a diarrhea stool yesterday morning but has had none since. She feels she has been eating normally. Her biggest complaint is the dizziness which occurs when she moves suddenly or tries to stand too quickly. She denies difficulty with voiding. She was seen in the office of [facility] and [place] on 12/02/2018 after which she was placed on Augmentin for an ESBL E. coli urinary tract infection; colony count was 40-50,000. She was also restarted back on her prednisone daily which she had been out of for a couple of weeks. She was on meclizine for her dizziness. This a.m. patient is feeling better. She slept some. She denies any pain and shortness of breath. She does not want her breakfast. She states she never eats breakfast. She denies nausea. [facility] History Medical History: Reports:: Coronary Artery Disease, Depression, Diabetes Mellitus Type 2, Gall Bladder Disease, Gastroesophageal Reflux Disease(GERD), Hypertension, Palpitations, Renal Insufficiency Denies:: Cancer, Cerebrovascular Accident, Dementia, Diabetes Mellitus Type 1, MRSA *Have you ever received a pneumonia vaccine?: Yes *Have you received a flu vaccine this season?: Yes Other Medical History: Reports: Anemia, Arthritis Other Surgeries: Yes: Appendectomy, Cholecystectomy, Colonoscopy, Colostomy, EGD, Other (Cholecystectomy) Amputation: No Fractures: No - *Social History Educational Level: Completed High School Smoking Status: Never smoker Alcohol Intake: never *Occupational Status:: retired Housing: house Household Members: children *Travel in the last 8 weeks: None - Psychiatric History Expresses thoughts of harming self/others: None Suicide Plan Description: No Plan Family Hx:: Coronary Artery Disease, Hyperlipidemia, Hypertension Review of Systems - Constitutional Reports chills, Reports weakness, Denies headache(s) - Eyes Denies change in vision - ENT Denies ear pain, Denies sore throat - *Cardiovascular Reports fast heart rate (At times with activities), Denies chest pain, Denies shortness of breath - *Respiratory Denies chest congestion, Denies cough, Denies shortness of breath, Denies coughing up blood - *Gastrointestinal Denies abdominal pain, Denies heartburn, Denies vomiting blood, Denies bright, red blood in stools, Denies black, tarry stools, Denies nausea, Denies vomiting Comments: Large diarrhea stool yesterday a.m. - *Genitourinary Denies difficulty urinating - *Neurologic Reports dizziness, Reports dizziness, Reports weakness, Denies abnormal walking, Denies confusion, Denies localized weakness Meds Home Medications Medication Instructions Recorded Confirmed Type Aspirin 81 mg PO DAILY 11/25/17 12/08/18 History Ferrous Sulfate 325 mg PO BID 11/25/17 12/08/18 History Furosemide [Furosemide 20mg Tab] 20 mg PO BID 11/25/17 12/09/18 History Lisinopril [Lisinopril 5mg Tablet] 2.5 mg PO DAILY 11/25/17 12/08/18 History Cyanocobalamin/Folic Acid [B-12 1 each SL DAILY 01/09/18 12/08/18 History 1,000 Mcg Sub Tablet] Gabapentin [Gabapentin 100mg Cap] 200 mg PO HS 01/10/18 12/09/18 History Benzonatate [Benzonatate 200mg Cap] 200 mg PO TID 11/30/18 12/08/18 History Cetirizine HCl [Zyrtec] 10 mg PO DAILY 11/30/18 12/08/18 History Citalopram Hydrobromide [Celexa 10 mg PO DAILY 11/30/18 12/08/18 History 10mg Tablet] Potassium Chloride [Klor-Con] 20 meq PO DAILY 11/30/18 12/08/18 History predniSONE [Prednisone 2.5mg 2.5 mg PO DAILY 11/30/18 12/08/18 History Tab] Meclizine HCl [Meclizine 12.5mg 12.5 mg PO TIDP PRN 12/08/18 12/08/18 History Tab] Allergies Allergy/AdvReac Type Severity Reaction Status Date / Time No Known Allergies Allergy Verified 11/25/17 11:29 Exam Vital signs and Labs for Last 24 Hours: Temp Pulse Resp BP Pulse Ox 98.0 F 69 18 156/82 H 92 L 12/09/18 07:39 12/09/18 07:39 12/09/18 07:39 12/09/18 07:39 12/09/18 07:39 Laboratory Results - last 24 hr 12/08/18 17:08: WBC 10.2, RBC 4.00 L, Hgb 11.9 L, Hct 35.3 L, MCV 88.1, MCH 29.7, MCHC 33.7, RDW 13.1, Plt Count 314, MPV 8.1, Neut % (Auto) 87.8 H, Lymph % (Auto) 7.3 L, [place] % (Auto) 3.1, Eos % (Auto) 1.3, Baso % (Auto) 0.5, Neut # (Auto) 8.9 H, Lymph # (Auto) 0.7, [place] # (Auto) 0.3, Eos # (Auto) 0.1, Baso # (Auto) 0.1, Total Counted 100, Neutrophils % (Manual) 90 H, Lymphocytes % (Manual) 8 L, Monocytes % (Manual) 2, Platelet Estimate Normal, RBC Morphology Normal 12/08/18 17:08: Sodium 138, Potassium 4.7, Chloride 100, Carbon Dioxide 27, Anion Gap 15.7 H, BUN 33 H, Creatinine 1.71 H, Estimated Creat Clear 19, Estimated GFR 28 L, Est GFR ( Amer) 34 L, Glucose 135 H, Calcium 8.8, Total Bilirubin 0.3, AST 19, ALT 11 L, Alkaline Phosphatase 136 H, Total Protein 7.3, Albumin 3.6, Globulin 3.7 H, Albumin/Globulin Ratio 1.0 L, Lipase 394 H 12/08/18 17:08: Lactate 2.6 H 12/08/18 17:30: Urine Color Yellow, Urine Appearance Clear, Urine pH 6.0, Ur Specific [place] 1.010, Urine Protein Negative, Urine Glucose (UA) Negative, Urine Ketones Negative, Urine Blood Trace-l, Urine Nitrate Negative, Urine Bilirubin Negative, Urine Urobilinogen 0.2, Ur Leukocyte Esterase Negative, Urine RBC Occasional, Urine WBC Occasional, Urine Bacteria Trace 12/08/18 21:19: Lactate 1.3 12/09/18 00:25: Troponin I < 0.02 12/09/18 03:35: Troponin I < 0.02 12/09/18 06:16: WBC 6.2 D, RBC 3.73 L, Hgb 10.6 L D, Hct 33.1 L, MCV 88.8, MCH 28.5, MCHC 32.1, RDW 13.1, Plt Count 240, MPV 7.7, Neut % (Auto) 71.3, Lymph % (Auto) 20.5, [place] % (Auto) 5.4, Eos % (Auto) 2.2, Baso % (Auto) 0.7, Neut # (Auto) 4.4, Lymph # (Auto) 1.3, [place] # (Auto) 0.3, Eos # (Auto) 0.1, Baso # (Auto) 0.0 12/09/18 06:16: Sodium 142, Potassium 4.4, Chloride 108 H, Carbon Dioxide 27, Anion Gap 11.4, BUN 26 H, Creatinine 1.41 H, Estimated Creat Clear 23, Estimated GFR 35 L, Est GFR ( Amer) 43 L D, Glucose 95 D, Calcium 8.3 L, Magnesium 2.1 I & O for Last 24 hours: Intake & Output 12/06/18 12/07/18 12/08/18 12/09/18 11:59 11:59 11:59 11:59 Intake Total 1955 / 1955 Output Total 250 / 250 Balance 1706 / 1706 Weight 110 lb 9 oz Radiology Reports for the Last 24 Hours: 12/08/2018 CT of the abdomen IMPRESSION: No acute abdominal or pelvic findings. Please see above for detailed - Constitutional no acute distress, thin Comments: Sitting up in the bed looking at her breakfast. - *Routine HEENT Exam Head: Present: normocephalic, atraumatic Eye: Absent: PERRL (Right pupil larger than left), conjunctival icterus, scleral injection ENT: Present: mucous membranes moist, oropharynx clear - *Routine Neck Exam Present: supple, thyromegaly. Absent: carotid bruit, lymphadenopathy - *Routine Respiratory Exam Present: CTA bilaterally (Anteriorly and posteriorly) - *Routine Cardiovascular Exam Present: RRR - *Routine Abdominal Exam Present: soft, normoactive bowel sounds. Absent: tenderness, distended, guardin g - *Routine Extremities Exam Absent: edema, calf tenderness - *Routine Neurological Exam Present: alert, oriented X3, moving all extremities, normal speech. Absent: altered mental status, facial asymmetry Assessment and Plan (1) Renal insufficiency Current visit: Yes Status: Acute Category: Medical Code(s): N28.9 - Disorder of kidney and ureter, unspecified (2) UTI due to extended-spectrum beta lactamase (ESBL) producing Escherichia coli Current visit: Yes Status: Acute Category: Medical Code(s): N39.0 - Urinary tract infection, site not specified; B96.29 - Other Escherichia coli [E. coli] as the cause of diseases classified elsewhere; Z16.12 - Extended spectrum beta lactamase (ESBL) resistance (3) Benign paroxysmal vertigo Current visit: No Status: Acute Category: Medical Code(s): H81.10 - Benign paroxysmal vertigo, unspecified ear (4) History of hypertension Current visit: No Status: Acute Category: Medical Code(s): Z86.79 - Personal history of other diseases of the circulatory system (5) Arthritis Current visit: No Status: Chronic Category: Medical Code(s): M19.90 - Unspecified osteoarthritis, unspecified site (6) HTN (hypertension) Current visit: No Status: Chronic Category: Medical Code(s): I10 - Essential (primary) hypertension - Assessment and plan all Dx Assessment and Plan for all problems:: Continue with IV fluids and antibiotic. Out of bed with help as tolerated.
[2018-12-09 08:30] LABS: Amylase 54 U/L (25-115); Lipase 153 u/L (73-393)
--- NOTE | 2018-12-10 08:28 | Progress Note ---
Internal Medicine - PN: Subj *Date: 12/10/18 *Time: 08:24 Interval history: Patient states she feels better today. She is up and dressed and sitting in chair at bedside ready to go home. She is eating as usual. She is voiding without difficulty. She has had no further diarrhea. She denies chest pain and shortness of breath. Exam Vital signs and Labs for Last 24 Hours: Temp Pulse Resp BP Pulse Ox 98.3 F 97 H 16 103/52 L 99 12/10/18 08:00 12/10/18 08:00 12/10/18 08:00 12/10/18 08:00 12/10/18 08:00 Laboratory Results - last 24 hr 12/09/18 06:16: Amylase 54, Lipase 153 12/09/18 06:16: TSH 4.31 H I & O for Last 24 hours: Intake & Output 12/07/18 12/08/18 12/09/18 12/10/18 11:59 11:59 11:59 11:59 Intake Total 1956 / 1956 960 / 960 Output Total 250 / 250 650 / 650 Balance 1706 / 1706 310 / 310 Weight 110 lb 9 oz 112 lb 9 oz - Constitutional no acute distress Comments: Sitting in chair at bedside fully dressed and ready to go home. Appears comfortable - *Routine Respiratory Exam Present: CTA bilaterally (Anteriorly and posteriorly) - *Routine Cardiovascular Exam Present: RRR - *Routine Abdominal Exam Present: soft, normoactive bowel sounds. Absent: tenderness, distended - *Routine Extremities Exam Absent: edema, calf tenderness - *Routine Neurological Exam Present: alert, oriented X3 Assessment and Plan (1) Renal insufficiency Current visit: Yes Status: Acute Category: Medical Code(s): N28.9 - Disorder of kidney and ureter, unspecified (2) UTI due to extended-spectrum beta lactamase (ESBL) producing Escherichia coli Current visit: Yes Status: Acute Category: Medical Code(s): N39.0 - Urinary tract infection, site not specified; B96.29 - Other Escherichia coli [E. coli] as the cause of diseases classified elsewhere; Z16.12 - Extended spectrum beta lactamase (ESBL) resistance (3) Benign paroxysmal vertigo Current visit: No Status: Acute Category: Medical Code(s): H81.10 - Benign paroxysmal vertigo, unspecified ear (4) History of hypertension Current visit: No Status: Acute Category: Medical Code(s): Z86.79 - Personal history of other diseases of the circulatory system (5) Arthritis Current visit: No Status: Chronic Category: Medical Code(s): M19.90 - Unspecified osteoarthritis, unspecified site (6) HTN (hypertension) Current visit: No Status: Chronic Category: Medical Code(s): I10 - Essential (primary) hypertension - Assessment and plan all Dx Assessment and Plan for all problems:: IV is infiltrated. Will consider p.o. antibiotics. E. coli ESBL sensitive to Levaquin, Macrobid, and Bactrim, she was on Augmentin previously which caused GI upset with diarrhea. Should be able to go home today.
--- NOTE | 2018-12-10 15:32 | Discharge Summary ---
General - General Admission date:: 12/08/18 Discharge date: 12/10/18 HPI HPI: Ms. Garcia is an 88-year-old female with history of depression, arthritis, hypertension, chronic anemia, type 2 diabetes mellitus with diabetic chronic kidney disease, adrenal insufficiency, and gastritis who brought to the emergency room by her children due to their concern with her progressive weakness, dizziness, and intolerance of new antibiotic for UTI. Patient states she came because her children. She denies fever, abdominal pain, chest pain, shortness of breath, nausea and vomiting. She states that she did have a diarrhea stool yesterday morning but has had none since. She feels she has been eating normally. Her biggest complaint is the dizziness which occurs when she moves suddenly or tries to stand too quickly. She denies difficulty with voiding. She was seen in the office of [facility] and [place] on 12/02/2018 after which she was placed on Augmentin for an ESBL E. coli urinary tract infection; colony count was 40-50,000. She was also restarted back on her prednisone daily which she had been out of for a couple of weeks. She was on meclizine for her dizziness. This a.m. patient is feeling better. She slept some. She denies any pain and shortness of breath. She does not want her breakfast. She states she never eats breakfast. She denies nausea. Hospital Course Hospital Course: The patient had an abdominal CT which showed nothing acute. Her lipase and lactic acid were elevated. She was started on IV fluids and antibiotics. Her symptoms improved and she was able to get up and get dressed as well as sit in a chair. She was eating normally and had no further diarrhea. Her lipase normalized as did her lactic acid. Her renal function improved. Her urine culture was positive for ESBL E. coli which was sensitive to Levaquin, Macrobid, and Bactrim. The patient had previously been on Augmentin which it caused GI upset and diarrhea. She was stable to be discharged home on Levaquin as well as levothyroxine due to elevated TSH. She will follow-up in the office [facility]. Objective Vital signs: Temp Pulse Resp BP Pulse Ox 98.3 F 97 H 16 103/52 L 99 12/10/18 08:00 12/10/18 08:00 12/10/18 08:00 12/10/18 08:00 12/10/18 08:00 Narrative: - Constitutional no acute distress, thin Comments: Sitting up in the bed looking at her breakfast. - *Routine HEENT Exam Head: Present: normocephalic, atraumatic Eye: Absent: PERRL (Right pupil larger than left), conjunctival icterus, scleral injection ENT: Present: mucous membranes moist, oropharynx clear - *Routine Neck Exam Present: supple, thyromegaly. Absent: carotid bruit, lymphadenopathy - *Routine Respiratory Exam Present: CTA bilaterally (Anteriorly and posteriorly) - *Routine Cardiovascular Exam Present: RRR - *Routine Abdominal Exam Present: soft, normoactive bowel sounds. Absent: tenderness, distended, guarding - *Routine Extremities Exam Absent: edema, calf tenderness - *Routine Neurological Exam Present: alert, oriented X3, moving all extremities, normal speech. Absent: altered mental status, facial asymmetry DS: Diagnosis - Discharge Diagnosis (1) Renal insufficiency Status: Acute (2) UTI due to extended-spectrum beta lactamase (ESBL) producing Escherichia coli Status: Acute (3) Benign paroxysmal vertigo Status: Acute (4) History of hypertension Status: Acute (5) Arthritis Status: Chronic (6) HTN (hypertension) Status: Chronic Discharge Plan - Patient Discharge Instructions ACTIVITY: Continue current activity DIET: continue same diet Patient Instructions: Vertigo, Urinary Tract Infection, High Blood Pressure, DI for Urinary Tract Infection (UTI), Extended Spectrum Beta-Lactamase Infection - Follow up Plan Follow up with: Liu Edward MD [Primary Care Provider] - (as scheduled) Disposition: Home, Self-[facility] Medications: Home Medications Medication Instructions Recorded Confirmed Type Ferrous Sulfate 325 mg PO BID 11/25/17 12/08/18 History Furosemide [Furosemide 20mg Tab] 20 mg PO BID 11/25/17 12/09/18 History Lisinopril [Lisinopril 5mg Tablet] 2.5 mg PO DAILY 11/25/17 12/08/18 History Cyanocobalamin/Folic Acid [B-12 1 each SL DAILY 01/09/18 12/08/18 History 1,000 Mcg Sub Tablet] Gabapentin [Gabapentin 100mg Cap] 200 mg PO HS 01/10/18 12/09/18 History Benzonatate [Benzonatate 200mg Cap] 200 mg PO TID 11/30/18 12/08/18 History Cetirizine HCl [Zyrtec] 10 mg PO DAILY 11/30/18 12/08/18 History Citalopram Hydrobromide [Celexa 10 mg PO DAILY 11/30/18 12/08/18 History 10mg Tablet] Potassium Chloride [Klor-Con] 20 meq PO DAILY 11/30/18 12/08/18 History predniSONE [Prednisone 2.5mg 2.5 mg PO DAILY 11/30/18 12/08/18 History Tab] Meclizine HCl [Meclizine 12.5mg 12.5 mg PO TIDP PRN 12/08/18 12/08/18 History Tab] Aspirin [Aspirin 81mg chewable 81 mg PO DAILY tab.chew 12/10/18 Rx tab] Levothyroxine Sodium 25 mcg PO DAILY #30 tab 12/10/18 Rx [Levothyroxine 25mcg (0.025mg) Tab] levoFLOXacin [Levaquin 500mg 500 mg PO DAILY #5 tab 12/10/18 Rx tab] Prescriptions/Medication Reconciliation: New Aspirin [Aspirin 81mg chewable tab] 81 mg PO DAILY tab.chew Levothyroxine Sodium [Levothyroxine 25mcg (0.025mg) Tab] 25 mcg PO DAILY #30 tab levoFLOXacin [Levaquin 500mg tab] 500 mg PO DAILY #5 tab Continue Lisinopril [Lisinopril 5mg Tablet] 2.5 mg PO DAILY Furosemide [Furosemide 20mg Tab] 20 mg PO BID Ferrous Sulfate 325 mg PO BID Cyanocobalamin/Folic Acid [B-12 1,000 Mcg Sub Tablet] 1 each SL DAILY Gabapentin [Gabapentin 100mg Cap] 200 mg PO HS Potassium Chloride [Klor-Con] 20 meq PO DAILY Citalopram Hydrobromide [Celexa 10mg Tablet] 10 mg PO DAILY Benzonatate [Benzonatate 200mg Cap] 200 mg PO TID predniSONE [Prednisone 2.5mg Tab] 2.5 mg PO DAILY Cetirizine HCl [Zyrtec] 10 mg PO DAILY Meclizine HCl [Meclizine 12.5mg Tab] 12.5 mg PO TIDP PRN PRN Reason: Dizziness
== END 2018-12-10 10:57 | disposition home or self-care (01) ==
LOC: 2ND 16:47 → ER 16:47 → 2ND 21:51
PROVIDERS: ADMIT Emergency Medicine; ATTEND Family Medicine
CPT/HCPCS: 36415; 74176; 80048; 80053; 81001; 82150; 83605; 83690; 83735; 84443; 84484; 85007; 85025; 87040; 93005; 96365; 96367; 99285; G0378; J1335

== ENCOUNTER 2018-12-28 14:56 | Inpatient (IN) ==
[2018-12-28 15:30] LABS: Basophils % 0.5 % (0.1-2.0); Eosinophils # 0.1 K/mm3 (0.0-0.4); Eosinophils % 1.6 % (0.1-12.0); Hemoglobin 10.7 g/dL (12.2-16.2); Lymphocytes % 13.1 % (10-50); Mean Corpuscular HGB Conc 32.4 g/dL (31.8-35.4); Mean Corpuscular Hemoglobin 29.3 pg (27.0-31.2); Mean Corpuscular Volume 90.5 fl (81-99); Mean Platelet Volume 7.8 fl (7.4-10.4); Monocytes # 0.4 K/mm3 (0.1-1.0); Monocytes % 4.9 % (1.7-9.3); Neutrophils # 6.3 K/mm3 (1.8-7.8); Neutrophils % 79.9 % (37.0-80.0); Platelet Count 266 K/mm3 (142-424); Red Blood Count 3.64 M/mm3 (4.20-5.40); Red Cell Distribution Width 13.5 % (11.5-17.5); White Blood Count 7.9 K/mm3 (4.8-10.8)
[2018-12-28 15:39] LABS: Albumin Level 3.3 gm/dL (3.4-5.0); Albumin/Globulin Ratio 0.9 (1.1-1.8); Anion Gap 13.1 mEq/L (5-15); Bilirubin,Total 0.3 mg/dL (0.2-1.0); Calcium 8.8 mg/dL (8.5-10.1); Globulin 3.5 gm/dl (1.3-3.2); Total Protein,Serum 6.8 gm/dL (6.4-8.2)
[2018-12-28 15:41] LABS: Potassium 4.1 mmoL/L (3.5-5.1)
--- NOTE | 2018-12-28 15:59 | Emergency Department Note ---
ED Disposition Clinical Impression: Acute renal insufficiency, Chronic anemia, Frequent falls, Aortic stenosis, Dehydration, Noncompliance with medication regimen Disposition: Still a Patient Condition on Discharge: Fair Referrals: Provider,Referral, [Primary Care Provider] - - Critical Care Critical Care Time: No Attestation: On 12/28/18, the high probability of a clinically significant, sudden or life threatening deterioration of the following system(s) required my full and direct attention, intervention and personal management. The time I documented below is in addition to time spent performing reported procedures but includes the following listed in this critical care notation. Medical Decision Making - Tai Inquiry Pt receiving controlled substance: No Tai was queried for this patient: No Vital Signs: 12/28/18 14:59 12/28/18 15:27 12/28/18 15:46 Temperature 97.6 F Temperature Source Oral Pulse Rate [Right Radial] 62 67 67 Respiratory Rate 18 Blood Pressure [Right Arm] 75/40 L 77/54 L 87/65 L Blood Pressure Mean [Right Arm] 51 61 72 Blood Pressure Source [Right Arm] Automatic Cuff Automatic Cuff Automatic Cuff Blood Pressure Position [Right Arm] Sitting Supine Supine 02 Sat by Pulse Oximetry 96 96 98 Oxygen Delivery Method Room Air Room Air Room Air - Lab Data Lab Results 12/28/18 15:07: WBC 7.9, RBC 3.64 L, Hgb 10.7 L, Hct 33.0 L, MCV 90.5, MCH 29.3, MCHC 32.4, RDW 13.5, Plt Count 266, MPV 7.8, Neut % (Auto) 79.9, Lymph % (Auto) 13.1, [place] % (Auto) 4.9, Eos % (Auto) 1.6, Baso % (Auto) 0.5, Neut # (Auto) 6.3, Lymph # (Auto) 1.0, [place] # (Auto) 0.4, Eos # (Auto) 0.1, Baso # (Auto) 0.0 12/28/18 15:07: Sodium 133 L, Potassium 4.1, Chloride 98, Carbon Dioxide 26, Anion Gap 13.1, BUN 55 H, Creatinine 3.58 H, Estimated Creat Clear 9, Estimated GFR 12 L*, Est GFR ( Amer) 15 L*, Glucose 129 H, Calcium 8.8, Total Bilirubin 0.3, AST 29, ALT 16, Alkaline Phosphatase 118 H, Total Protein 6.8, Albumin 3.3 L, Globulin 3.5 H, Albumin/Globulin Ratio 0.9 L Result diagrams: 12/28/18 15:07 12/28/18 15:07 Orders (Tests/Meds): ED MEDICATIONS Generic Name Dose Route Start Last Admin Trade Name Nikolas PRN Reason Stop Dose Admin Sodium Chloride 1,000 mls @ 999 mls/hr 12/28/18 15:15 12/28/18 15:10 Sod Chlor 0.9% 1000ml Bag IV 12/28/18 16:15 999 mls/hr .Q1H1M CECILY Administration Sodium Chloride 10 ml 12/28/18 15:09 Saline Flush 10ml Syringe IV 12/29/18 03:09 NEEDED PRN Maintain IV Site ORDERS Category Date Time Status Cardiac Enzymes Stat Lab 12/28/18 16:05 Ordered Free T4 (Free Thyroxine) Stat Lab 12/28/18 16:05 Ordered Thyroid Stimulating Hormone Stat Lab 12/28/18 16:05 Ordered Urinalysis and Microscopic Stat Lab 12/28/18 14:57 Ordered - ECG Data Tracing #1 Normal sinus rhythm 63/min R wave in the anterior leads no acute ST segment or T wave changes. ECG initial impression date: 12/28/18 ECG initial impression time: 15:00 Medical Decision Narrative: The patient remained stable. Her creatinine was elevated to 3.5 she ran out of diuretics earlier than normal, seems to be a case of noncompliance with medications. She does have a systolic murmur I cannot exclude aortic stenosis that contributes to her generalized weakness. I spoke with Dr. Go was covering for Dr. Edward who agreed to admit the patient for IV rehydration therapy and 2D cardiac echocardiogram. Weakness HPI - General Chief complaint: Weakness Stated complaint: weakness, low bp Time Seen by Provider: 12/28/18 15:15 Mode of Arrival: EMS Limitations: No Limitations Description of Symptoms (Recalled from ER Triage Doc. by RN): Pt report she hasn't been feeling well for approx 2 weeks. Pt family reports pt has been weak, having trouble getting around at home, states "her legs just wont hold her". Family reports pt was recently admitted and treated for UTI, states pt hasn't felt well since then. Pt daughter reports pt fell 4 times yesterday - History of Present Illness HPI Narrative: Ms. Garcia is 88 years old white female with a history of hypertension, anemia, neuropathy and depression. Today she was brought to the ED because of progressive weakness over the last week and multiple falls over the last 2 days. In the ED has no complaint of pain. Complains of generalized weakness. Patient denies having chest pain abdominal pain, neck pain or lower back pain. She denies having fever chills cough or dysuria. She denies having hemoptysis hematemesis coffee-ground emesis or melanotic stool. Her daughter who arranges her medicine has discovered that her diuretics has ran out many days before time. MD Complaint: generalized weakness Onset (ago): day(s) Duration: constant Location: generalized Relieving factors: none Exacerbating factors: none Context: depression Associated symptoms: denies other symptoms - Related Data Home Medications Medication Instructions Recorded Confirmed Ferrous Sulfate 325 mg PO BID 11/25/17 12/08/18 Furosemide [Furosemide 20mg Tab] 20 mg PO BID 11/25/17 12/09/18 Lisinopril [Lisinopril 5mg Tablet] 2.5 mg PO DAILY 11/25/17 12/08/18 Cyanocobalamin/Folic Acid [B-12 1 each SL DAILY 01/09/18 12/08/18 1,000 Mcg Sub Tablet] Gabapentin [Gabapentin 100mg Cap] 200 mg PO HS 01/10/18 12/09/18 Benzonatate [Benzonatate 200mg Cap] 200 mg PO TID 11/30/18 12/08/18 Cetirizine HCl [Zyrtec] 10 mg PO DAILY 11/30/18 12/08/18 Citalopram Hydrobromide [Celexa 10 mg PO DAILY 11/30/18 12/08/18 10mg Tablet] Potassium Chloride [Klor-Con] 20 meq PO DAILY 11/30/18 12/08/18 predniSONE [Prednisone 2.5mg 2.5 mg PO DAILY 11/30/18 12/08/18 Tab] Meclizine HCl [Meclizine 12.5mg 12.5 mg PO TIDP PRN 12/08/18 12/08/18 Tab] Previous Rx's Medication Instructions Recorded Aspirin [Aspirin 81mg chewable 81 mg PO DAILY tab.chew 12/10/18 tab] Levothyroxine Sodium 25 mcg PO DAILY #30 tab 12/10/18 [Levothyroxine 25mcg (0.025mg) Tab] levoFLOXacin [Levaquin 500mg 500 mg PO DAILY #5 tab 12/10/18 tab] Allergies Allergy/AdvReac Type Severity Reaction Status Date / Time No Known Allergies Allergy Verified 11/25/17 11:29 [facility] History - Hepatitis A Screen Drug use history?: No High risk sexual behaviors?: No History of sexually transmitted infection?: No Currently employed?: No Childcare worker?: No Do you have indoor plumbing?: Yes Do you have electricity?: Yes Attestation statement:: This patient has been screened for Hepatitis A risk factors. I have reviewed the patient's past medical history: Yes Medical History: Reports:: Coronary Artery Disease, Depression, Gall Bladder Disease, Gastroesophageal Reflux Disease(GERD), Hypertension, Palpitations, Renal Insufficiency Denies:: Cancer, Cerebrovascular Accident, Dementia, Diabetes Mellitus Type 1, Diabetes Mellitus Type 2, MRSA Other Medical History: Reports: Anemia, Arthritis Comment: postherpetic neuralgia Other Surgeries: Yes: Appendectomy, Cholecystectomy, Colonoscopy, Colostomy, EGD, Other (Cholecystectomy) Amputation: No Fractures: Yes (pelvis) Comment: cholecystectomy - Social History Smoking Status: Never smoker Alcohol Intake: never Occupational Status: retired Housing: house Household Members: children Comment: patient and son live in the same household. Other family members live close as well - Psychiatric History Expresses thoughts of harming self/others: None Suicide Plan Description: No Plan Pschychiatric History:: Reports:: Depression Family Hx:: Coronary Artery Disease, Hyperlipidemia, Hypertension ROS Obtained: Yes All systems reviewed & no additional complaints Physical Exam - General General appearance: alert, in no apparent distress - Head Head exam: atraumatic, normocephalic, normal inspection - Eye Eye exam: Present: normal appearance, PERRL, EOMI. Absent: scleral icterus - ENT ENT exam: Present: normal exam, normal oropharynx, mucous membranes moist, TM's normal bilaterally, normal external ear exam, other (hard hearing. ) - Neck Neck exam: Present: normal inspection, full ROM, trachea midline. Absent: tenderness, meningismus, lymphadenopathy - Chest Chest inspection: Present: normal inspection, symmetric chest wall rise. Absent: tenderness - Respiratory Respiratory exam: Present: normal lung sounds bilaterally. Absent: respiratory distress, wheezes - Cardiovascular Cardiovascular exam: Present: regular rate, normal rhythm, systolic murmur. Absent: JVD - Abdominal Exam Abdominal exam: Present: soft, normal bowel sounds. Absent: distention, tenderness, guarding, rebound, rigidity - External exam: Present: normal external exam - Extremities Exam Extremities exam: Present: normal inspection, full ROM, normal capillary refill. Absent: tenderness, pedal edema, joint swelling, calf tenderness - Back Exam Back exam: Present: normal inspection. Absent: tenderness, CVA tenderness (R), CVA tenderness (L) - Neurological Exam Neurological exam: Present: alert, oriented X3, CN II-XII intact, motor sensory deficit, reflexes normal - Psychiatric Psychiatric exam: Present: normal affect, normal mood - Skin Skin exam: Present: warm, dry, intact, normal color - Lymphatic Lymphatic Findings: no adenopathy
[2018-12-28 16:47] LABS: Creatine Kinase 190 U/L (26-192); Free T4 (Free Thyroxine) 0.89 ng/dl (0.76-1.46); Thyroid Stimulating Hormone 1.39 uIU/ml (0.358-3.740)
--- NOTE | 2018-12-29 07:40 | Pharmacy Consult Notes ---
[facility] Pharmacy VTE Monitoring - Patient Demographics Admission date: 12/28/18 Report Date: 12/29/18 Time: 07:40 Allergies/Adverse Reactions: Patient Allergies No Known Allergies Allergy (Verified 11/25/17 11:29) Height: 1.63 m Weight: 50.065 kg Patient Problems: Current Active Problems (Updated 12/28/18 @ 16:03 by Angelic Gusman MD) Dehydration (Acute) Acute renal insufficiency (Acute) Chronic anemia (Acute) Frequent falls (Acute) Aortic stenosis (Acute) Noncompliance with medication regimen (Acute) - VTE Risk Labs: VTE Related Lab Results Hgb 10.7 g/dL (12.2-16.2) L 12/28/18 15:07 Hct 33.0 % (37.0-47.0) L 12/28/18 15:07 Plt Count 266 K/mm3 (142-424) 12/28/18 15:07 BUN 55 mg/dL (7-18) H 12/28/18 15:07 Creatinine 3.58 mg/dL (0.55-1.02) H 12/28/18 15:07 Estimated Creat Clear 9 mL/min (50-200) 12/28/18 15:07 Was VTE Risk Assessment Performed: Yes VTE Score: 5 VTE Risk Level: Low Risk - Prophylaxis VTE Prophylaxis Ordered?: Yes Types of VTE Prophylaxis: TEDS Knee High Location of Applied Device: Bilateral Lower Extremeties - VTE Diagnosis Confirmed Treatment or plan recommended: Continue Current Treatment
[2018-12-29 07:41] LABS: Basophils % 0.5 % (0.1-2.0); Eosinophils # 0.1 K/mm3 (0.0-0.4); Eosinophils % 1.5 % (0.1-12.0); Hematocrit 30.7 % (37.0-47.0); Hemoglobin 10.2 g/dL (12.2-16.2); Lymphocytes # 0.9 K/mm3 (0.7-4.5); Lymphocytes % 13.2 % (10-50); Mean Corpuscular HGB Conc 33.1 g/dL (31.8-35.4); Mean Corpuscular Hemoglobin 29.7 pg (27.0-31.2); Mean Corpuscular Volume 89.7 fl (81-99); Mean Platelet Volume 7.5 fl (7.4-10.4); Monocytes # 0.2 K/mm3 (0.1-1.0); Monocytes % 2.9 % (1.7-9.3); Neutrophils # 5.4 K/mm3 (1.8-7.8); Platelet Count 269 K/mm3 (142-424); Red Blood Count 3.42 M/mm3 (4.20-5.40); Red Cell Distribution Width 13.6 % (11.5-17.5); White Blood Count 6.6 K/mm3 (4.8-10.8)
[2018-12-29 07:44] LABS: Anion Gap 12.4 mEq/L (5-15); Calcium 8.1 mg/dL (8.5-10.1); Potassium 4.4 mmoL/L (3.5-5.1)
--- NOTE | 2018-12-29 09:31 | History & Physical Report ---
*Admission Date: 12/28/18 *Chief complaint: Muscle weakness *History of present illness: Ms. Garcia is an 88 year old white female with a history of hypertension, anemia, neuropathy and depression. She was brought to the ED because of progressive weakness and decline over the last week with multiple falls over the last 2 days. In the ED she had no complaint of pain. . Patient denies having shortness of breath, chest pain,abdominal pain, neck pain or lower back pain. She denies having fever, chills, cough or dysuria. She denies having hemoptysis, hematemesis, coffee-ground emesis or melanotic stool. Patient states that she was having difficulty with just moving her arms and her legs. Her daughter who arranges her medicine discovered that her diuretics were out many days before time. Currently the patient lives with her son. This a.m. patient feels better. She denies chest pain and shortness of breath. She is trying to eat her breakfast. [facility] History Medical History: Reports:: Coronary Artery Disease, Depression, Gall Bladder Disease, Gastroesophageal Reflux Disease(GERD), Hypertension, Palpitations, Renal Insufficiency Denies:: Cancer, Cerebrovascular Accident, Dementia, Diabetes Mellitus Type 1, Diabetes Mellitus Type 2, MRSA *Have you ever received a pneumonia vaccine?: Yes *Have you received a flu vaccine this season?: Yes Other Medical History: Reports: Anemia, Arthritis Other Surgeries: Yes: Appendectomy, Cholecystectomy, Colonoscopy, Colostomy, EGD, Other (Cholecystectomy) Amputation: No Fractures: Yes (pelvis) - *Social History Educational Level: Completed High School Smoking Status: Never smoker Alcohol Intake: never *Occupational Status:: retired Housing: house Household Members: children *Travel in the last 8 weeks: None - Psychiatric History Expresses thoughts of harming self/others: None Suicide Plan Description: No Plan Pschychiatric History:: Reports:: Depression Family Hx:: Coronary Artery Disease, Hyperlipidemia, Hypertension Review of Systems - Constitutional Reports lack of energy, Reports weakness - ENT Reports dizziness, Denies ear pain, Denies sore throat - *Cardiovascular Denies chest pain, Denies shortness of breath - *Respiratory Denies chest congestion, Denies cough, Denies shortness of breath - *Gastrointestinal Denies change in stools, Denies constipation, Denies nausea, Denies vomiting - *Genitourinary Denies difficulty urinating - *Musculoskeletal Reports muscle weakness, Denies joint pain - *Neurologic Reports unsteadiness, Reports dizziness, Reports localized weakness, Reports weakness, Denies headache(s) Meds Home Medications Medication Instructions Recorded Confirmed Type Ferrous Sulfate 325 mg PO BID 11/25/17 12/28/18 History Furosemide [Furosemide 20mg Tab] 20 mg PO BID 11/25/17 12/28/18 History Gabapentin [Gabapentin 100mg Cap] 200 mg PO HS 01/10/18 12/28/18 History Benzonatate [Benzonatate 200mg Cap] 200 mg PO TID PRN 11/30/18 12/28/18 History Cetirizine HCl [Zyrtec] 10 mg PO DAILY PRN 11/30/18 12/28/18 History Citalopram Hydrobromide [Celexa 10 mg PO DAILY 11/30/18 12/28/18 History 10mg Tablet] Potassium Chloride [Klor-Con] 20 meq PO DAILY 11/30/18 12/28/18 History predniSONE [Prednisone 2.5mg 2.5 mg PO DAILY 11/30/18 12/28/18 History Tab] Meclizine HCl [Meclizine 12.5mg 12.5 mg PO TIDP PRN 12/08/18 12/28/18 History Tab] Aspirin [Aspirin 81mg chewable 81 mg PO DAILY tab.chew 12/10/18 12/28/18 Rx tab] Levothyroxine Sodium 25 mcg PO DAILY #30 tab 12/10/18 12/28/18 Rx [Levothyroxine 25mcg (0.025mg) Tab] Cyanocobalamin (Vitamin B-12) 1,000 mcg PO DAILY 12/29/18 12/29/18 History [Vitamin B-12 1000mcg Tablet] Lisinopril [Zestril 2.5mg Tablet] 2.5 mg PO DAILY 12/29/18 12/29/18 History Sulfamethoxazole/Trimethoprim 1 each PO BID 12/29/18 12/29/18 History [Bactrim DS tablet] Allergies Allergy/AdvReac Type Severity Reaction Status Date / Time No Known Allergies Allergy Verified 11/25/17 11:29 Exam Vital signs and Labs for Last 24 Hours: Temp Pulse Resp BP Pulse Ox 97.6 F 75 18 110/44 L 95 12/29/18 07:56 12/29/18 07:56 12/29/18 07:56 12/29/18 07:56 12/29/18 07:56 Laboratory Results - last 24 hr 12/28/18 15:07: WBC 7.9, RBC 3.64 L, Hgb 10.7 L, Hct 33.0 L, MCV 90.5, MCH 29.3, MCHC 32.4, RDW 13.5, Plt Count 266, MPV 7.8, Neut % (Auto) 79.9, Lymph % (Auto) 13.1, [place] % (Auto) 4.9, Eos % (Auto) 1.6, Baso % (Auto) 0.5, Neut # (Auto) 6.3, Lymph # (Auto) 1.0, [place] # (Auto) 0.4, Eos # (Auto) 0.1, Baso # (Auto) 0.0 12/28/18 15:07: Sodium 133 L, Potassium 4.1, Chloride 98, Carbon Dioxide 26, Anion Gap 13.1, BUN 55 H, Creatinine 3.58 H, Estimated Creat Clear 9, Estimated GFR 12 L*, Est GFR ( Amer) 15 L*, Glucose 129 H, Calcium 8.8, Total Bilirubin 0.3, AST 29, ALT 16, Alkaline Phosphatase 118 H, Total Protein 6.8, Albumin 3.3 L, Globulin 3.5 H, Albumin/Globulin Ratio 0.9 L 12/28/18 15:07: Total Creatine Kinase 190, CK-MB (CK-2) 1.7, CK-MB (CK-2) Rel Index 0.9, Troponin I < 0.02, TSH 1.39 D, Free T4 0.89 12/29/18 07:28: WBC 6.6, RBC 3.42 L, Hgb 10.2 L, Hct 30.7 L, MCV 89.7, MCH 29.7, MCHC 33.1, RDW 13.6, Plt Count 269, MPV 7.5, Neut % (Auto) 82.0 H, Lymph % (Auto) 13.2, [place] % (Auto) 2.9, Eos % (Auto) 1.5, Baso % (Auto) 0.5, Neut # (Auto) 5.4, Lymph # (Auto) 0.9, [place] # (Auto) 0.2, Eos # (Auto) 0.1, Baso # (Auto) 0.0 12/29/18 07:28: Sodium 136, Potassium 4.4, Chloride 104, Carbon Dioxide 24, Anion Gap 12.4, BUN 50 H, Creatinine 2.88 H, Estimated Creat Clear 11, Estimated GFR 16 L*, Est GFR ( Amer) 19 L* D, Glucose 95 D, Calcium 8.1 L I & O for Last 24 hours: Intake & Output 12/26/18 12/27/18 12/28/18 12/29/18 11:59 11:59 11:59 11:59 Intake Total 1360 / 1360 Output Total 750 / 750 Balance 610 / 610 Weight 110 lb 6 oz - Constitutional no acute distress Comments: She is sitting up in the bed eating her breakfast. She appears comfortable. - *Routine HEENT Exam Head: Present: normocephalic, atraumatic Eye: Absent: PERRL (Right pupil is greater than the left; she has had an injury to the right eye in the remote past), conjunctival icterus, scleral injection ENT: Present: mucous membranes moist, oropharynx clear - *Routine Neck Exam Present: carotid bruit. Absent: lymphadenopathy (Left), thyromegaly - *Routine Respiratory Exam Present: CTA bilaterally (Anteriorly and posteriorly) - *Routine Cardiovascular Exam Present: RRR - *Routine Abdominal Exam Present: soft, normoactive bowel sounds. Absent: tenderness, distended - *Routine Extremities Exam Absent: edema, calf tenderness - *Routine Neurological Exam Present: alert Assessment and Plan (1) Acute renal insufficiency Current visit: Yes Status: Acute Category: Medical Code(s): N28.9 - Disorder of kidney and ureter, unspecified (2) Dehydration Current visit: Yes Status: Acute Category: Medical Code(s): E86.0 - Dehydration (3) Frequent falls Current visit: Yes Status: Acute Category: Medical Code(s): R29.6 - Repeated falls (4) Noncompliance with medication regimen Current visit: Yes Status: Chronic Category: Medical Code(s): Z91.14 - Patient's other noncompliance with medication regimen (5) Hypothyroidism Current visit: Yes Status: Acute Category: Medical Code(s): E03.9 - Hypo thyroidism, unspecified - Assessment and plan all Dx Assessment and Plan for all problems:: Care management will look at discharge planning. Will consult physical therapy. Will need to continue with gentle hydration and repeat kidney function in the a.m.
--- NOTE | 2018-12-29 18:55 | Cardiology Report ---
PROCEDURE: 2-D M-mode and Doppler INDICATIONS FOR THE TEST: Chest pain COPD Heart Murmur Tobacco Smoking PalpitationsX Fatigue Syncope Edema HypertensionXxDiabetes Mellitus Rheumatic Fever SOB WOODS Obesity HyperlipidemiaX Family History HD Additional History weakness,anemia PATIENT INFORMATION HEIGHT: 64 WEIGHT:112 GENDER: Female B/P: 2-D/M-MODE INTERPRETATION: 2-D MEASUREMENTS OBSERVED VALUES IN CMS Right Ventricular Dimension (RVDd) 1.5 Interventricular Septum (Thickness)(IVsd) .7 Left Ventricular Internal Dimensions(LVIDd) 4.1 Left Ventricular Posterior Wall (Thickness)(LVPWd) .8 Aortic Root 2.7 Aortic Cusp Separation 1.5 Left Atrial Dimensions (LAD) 2.4 2D 1. Left atrium is mildly enlarged, left ventricle is normal size, mild concentric left ventricular hypertrophy, visually estimated ejection fraction of 55% with no regional wall motion abnormality. 2. The right atrium and right ventricle are mildly enlarged with normal contractility. 3.The aortic valve is thickened and calcified leaflet continue to display mobility. 4. The mitral and tricuspid valve leaflets are minimally thickened 5. The pulmonic valve is poorly visualized. 6. No significant pericardial effusion noted. DOPPLER INTERROGATION: Doppler interrogation of the aortic, mitral and tricuspid valvular presence of mild aortic, mild mitral and tricuspid regurgitation, calculated right ventricular systolic pressure is 51 mmHg consistent with moderate pulmonary hypertension, inferior vena cava is mildly dilated without significant respiratory collapse. Diastolic parameters are inconclusive. CONCLUSION: 1. Biatrial enlargement, normal left ventricular size, mild concentric left ventricular hypertrophy, visually estimated ejection fraction 55% with no regional wall motion abnormality, diastolic parameters are inconclusive. 2. Mildly enlarged right ventricle with normal contractility. 3. Mild aortic, mild mitral and tricuspid regurgitation. Calculated right ventricular systolic pressure is 51 mmHg consistent with moderate pulmonary hypertension. Inferior vena cava is mildly dilated without significant inspiratory collapse. 4. No significant pericardial effusion noted.
[2018-12-30 07:36] LABS: Basophils % 0.3 % (0.1-2.0); Eosinophils # 0.2 K/mm3 (0.0-0.4); Eosinophils % 2.8 % (0.1-12.0); Hematocrit 30.3 % (37.0-47.0); Hemoglobin 9.7 g/dL (12.2-16.2); Lymphocytes # 0.8 K/mm3 (0.7-4.5); Lymphocytes % 12.9 % (10-50); Mean Corpuscular Hemoglobin 29.1 pg (27.0-31.2); Mean Corpuscular Volume 90.7 fl (81-99); Mean Platelet Volume 7.8 fl (7.4-10.4); Monocytes # 0.3 K/mm3 (0.1-1.0); Neutrophils # 5.1 K/mm3 (1.8-7.8); Neutrophils % 80.1 % (37.0-80.0); Platelet Count 231 K/mm3 (142-424); Red Blood Count 3.35 M/mm3 (4.20-5.40); Red Cell Distribution Width 13.5 % (11.5-17.5); White Blood Count 6.3 K/mm3 (4.8-10.8)
[2018-12-30 07:42] LABS: Anion Gap 12.2 mEq/L (5-15); Calcium 8.2 mg/dL (8.5-10.1); Potassium 4.2 mmoL/L (3.5-5.1)
--- NOTE | 2018-12-30 08:20 | Progress Note ---
Internal Medicine - PN: Subj *Date: 12/30/18 *Time: 08:21 Interval history: Laboratory Tests 12/30/18 12/30/18 07:12 07:12 WBC 6.3 RBC 3.35 L Hgb 9.7 L Hct 30.3 L Neut % (Auto) 80.1 H Lymph % (Auto) 12.9 [place] % (Auto) 4.0 Sodium 139 Potassium 4.2 Chloride 107 Carbon Dioxide 24 BUN 37 H D Creatinine 1.86 H D Estimated GFR 26 L Glucose 84 Calcium 8.2 L Patient awakened from sound sleep for assessment. She denies chest pain and shortness of breath. She feels she is eating very well. States she sat in a chair without problems yesterday. PT saw patient yesterday and report reviewed. She did walk with her walker yesterday. Exam Vital signs and Labs for Last 24 Hours: Temp Pulse Resp BP Pulse Ox 97.6 F 79 18 134/59 L 97 12/30/18 04:00 12/30/18 04:00 12/30/18 04:00 12/30/18 04:00 12/30/18 04:00 Laboratory Results - last 24 hr 12/30/18 07:12: WBC 6.3, RBC 3.35 L, Hgb 9.7 L, Hct 30.3 L, MCV 90.7, MCH 29.1, MCHC 32.0, RDW 13.5, Plt Count 231, MPV 7.8, Neut % (Auto) 80.1 H, Lymph % (Auto) 12.9, [place] % (Auto) 4.0, Eos % (Auto) 2.8, Baso % (Auto) 0.3, Neut # (Auto) 5.1, Lymph # (Auto) 0.8, [place] # (Auto) 0.3, Eos # (Auto) 0.2, Baso # (Auto) 0.0 12/30/18 07:12: Sodium 139, Potassium 4.2, Chloride 107, Carbon Dioxide 24, Anion Gap 12.2, BUN 37 H D, Creatinine 1.86 H D, Estimated Creat Clear 17, Estimated GFR 26 L, Est GFR ( Amer) 31 L D, Glucose 84, Calcium 8.2 L I & O for Last 24 hours: Intake & Output 12/27/18 12/28/18 12/29/1830/19 11:59 11:59 11:59 11:59 Intake Total 1360 / 1360 720 / 720 Output Total 1450 / 1450 400 / 400 Balance -90 / -90 320 / 320 Weight 110 lb 6 oz 112 lb 8 oz Radiology Reports for the Last 24 Hours: 12/29/2018 echocardiogram CONCLUSION: 1. Biatrial enlargement, normal left ventricular size, mild concentric left ventricular hypertrophy, visually estimated ejection fraction 55% with no regional wall motion abnormality, diastolic parameters are inconclusive. 2. Mildly enlarged right ventricle with normal contractility. 3. Mild aortic, mild mitral and tricuspid regurgitation. Calculated right ventricular systolic pressure is 51 mmHg consistent with moderate pulmonary hypertension. Inferior vena cava is mildly dilated without significant inspiratory collapse. 4. No significant pericardial effusion noted. - Constitutional no acute distress Comments: Awakened from sound sleep for assessment - *Routine Neck Exam Present: carotid bruit (Left carotid bruit) - *Routine Respiratory Exam Present: CTA bilaterally (Anteriorly and posteriorly) - *Routine Cardiovascular Exam Present: RRR - *Routine Abdominal Exam Present: soft, normoactive bowel sounds. Absent: tenderness - *Routine Extremities Exam Absent: edema, calf tenderness - *Routine Neurological Exam Present: alert (Oriented to name. Think she is at home. Almost got the day right.) Assessment and Plan (1) Acute renal insufficiency Current visit: Yes Status: Acute Category: Medical Code(s): N28.9 - Disorder of kidney and ureter, unspecified (2) Dehydration Current visit: Yes Status: Acute Category: Medical Code(s): E86.0 - Dehydration (3) Frequent falls Current visit: Yes Status: Acute Category: Medical Code(s): R29.6 - Repeated falls (4) Noncompliance with medication regimen Current visit: Yes Status: Chronic Category: Medical Code(s): Z91.14 - Patient's other noncompliance with medication regimen (5) Hypothyroidism Current visit: Yes Status: Acute Category: Medical Code(s): E03.9 - Hypothyroidism, unspecified - Assessment and plan all Dx Assessment and Plan for all problems:: BUN and creatinine are gradually improving. Will saline lock her IV today. We will also do a carotid ultrasound for the left carotid bruit for symptoms of dizziness and imbalance. Was unable to see that she had ever had one time and she does not know.
--- NOTE | 2018-12-30 09:39 | Carotid Imaging Report ---
"Cerebrovascular Exam IMPRESSIONS 1. The bilateral vertebral arteries are patent with normal antegrade flow. 2. Study suggests 20-49% stenosis involving the right internal carotid artery and the left internal carotid artery. No change from the study of 27-Jun-2016. History: A bruit of the left carotid artery. A bruit of the right carotid artery. Memory loss. Carotid duplex study. Complete study and Doppler flow study including spectral analysis, color and enamorado scale imaging. Height: Height: 162.6cm. Height: 64in. Weight: Weight: 50.8kg. Weight: 111.8lb. Body mass index: BMI: 19.2kg/m^2. Body surface area: BSA: 1.51m^2. Location: Bedside. Patient status: Inpatient. Tables: Arterial flow: + +--------+--------+ |Location |V sys |V ed | + +--------+--------+ |Right CCA - proximal|85.6cm/s|21.2cm/s| + +--------+--------+ |Right CCA - distal |76.2cm/s|20.4cm/s| + +--------+--------+ |Right ECA |121cm/s |--------| + +--------+--------+ |Right ICA - proximal|66.8cm/s|19.6cm/s| + +--------+--------+ |Right ICA - mid |83.3cm/s|22.8cm/s| + +--------+--------+ |Right ICA - distal |87.2cm/s|26.7cm/s| + +--------+--------+ |Right vertebral |64.4cm/s|--------| + +--------+--------+ |Left CCA - proximal |127cm/s |24.4cm/s| + +--------+--------+ |Left CCA - distal |97.4cm/s|22.8cm/s| + +--------+--------+ |Left ECA |175cm/s |--------| + +--------+--------+ |Left ICA - proximal |93.4cm/s|21cm/s | + +--------+--------+ |Left ICA - mid |80.3cm/s|22.7cm/s| + +--------+--------+ |Left ICA - distal |87.3cm/s|19.2cm/s| + +--------+--------+ |Left vertebral |30.6cm/s|--------| + +--------+--------+ Velocity ratios: + + + + + + | |Right, V sys|Right, V ed|Left, V sys|Left, V ed| + + + + + + |Max ICA/dist CCA|1.14 |1.31 |0.96 |1 | + + + + + + (Report amended ) Electronically signed by: Cooper Zmaora [id number]"
--- NOTE | 2018-12-31 08:32 | Progress Note ---
Internal Medicine - PN: Subj *Date: 12/31/18 *Time: 08:28 Interval history: Patient has been sound asleep and having difficulty with talking and answering questions as yet. Nursing staff states she was awake all night. Patient does say no to pain and shortness of breath. She is hungry. Usually eats satisfactory one meal a day. Dr. Edward made medication adjustments yesterday Exam Vital signs and Labs for Last 24 Hours: Temp Pulse Resp BP Pulse Ox 97.7 F 76 18 149/75 H 93 L 12/31/18 08:00 12/31/18 08:00 12/31/18 08:00 12/31/18 08:00 12/31/18 08:00 I & O for Last 24 hours: Intake & Output 12/28/18 12/29/18 12/30/18 12/31/18 11:59 11:59 11:59 11:59 Intake Total 1360 / 1360 1080 / 1080 600 / 600 Output Total 1450 / 1450 400 / 400 Balance -90 / -90 680 / 680 600 / 600 Weight 110 lb 6 oz 112 lb 8 oz 110 lb 5 oz - Constitutional no acute distress Comments: Lethargic this a.m. Apparently was awake all night. - *Routine Respiratory Exam Present: CTA bilaterally (Anteriorly and posteriorly) - *Routine Cardiovascular Exam Present: RRR - *Routine Abdominal Exam Present: soft, normoactive bowel sounds. Absent: tenderness - *Routine Extremities Exam Absent: edema - *Routine Neurological Exam Lethargic this a.m. Assessment and Plan (1) Acute renal insufficiency Current visit: Yes Status: Acute Category: Medical Code(s): N28.9 - Disorder of kidney and ureter, unspecified (2) Dehydration Current visit: Yes Status: Acute Category: Medical Code(s): E86.0 - Dehydration (3) Frequent falls Current visit: Yes Status: Acute Category: Medical Code(s): R29.6 - Repeated falls (4) Noncompliance with medication regimen Current visit: Yes Status: Chronic Category: Medical Code(s): Z91.14 - Patient's other noncompliance with medication regimen (5) Hypothyroidism Current visit: Yes Status: Acute Category: Medical Code(s): E03.9 - Hypothyroidism, unspecified (6) Dementia Current visit: Yes Status: Acute Category: Medical Code(s): F03.90 - Unspecified dementia without behavioral disturbance - Assessment and plan all Dx Assessment and Plan for all problems:: Disposition is uncertain. Care management notes reviewed. She is stable for discharge.
--- NOTE | 2019-01-01 08:46 | Progress Note ---
Internal Medicine - PN: Subj *Date: 01/01/19 *Time: 08:44 Interval history: Patient states she is feeling much better this morning. She is much more conversant and alert. She denies any pain and states she slept well last night. She states she is planning to eat breakfast this am. Exam Vital signs and Labs for Last 24 Hours: Temp Pulse Resp BP Pulse Ox 97.5 F L 85 16 161/69 H 99 01/01/19 08:00 01/01/19 08:00 01/01/19 08:00 01/01/19 08:00 01/01/19 08:00 I & O for Last 24 hours: Intake & Output 12/29/18 12/30/18 12/31/18 01/01/19 11:59 11:59 11:59 11:59 Intake Total 1360 / 1360 1080 / 1080 600 / 600 490 / 490 Output Total 1450 / 1450 400 / 400 Balance -90 / -90 680 / 680 600 / 600 490 / 490 Weight 110 lb 6 oz 112 lb 8 oz 110 lb 5 oz 108 lb 5 oz - Constitutional no acute distress - *Routine Respiratory Exam Present: CTA bilaterally - *Routine Cardiovascular Exam Present: RRR - *Routine Abdominal Exam Present: soft, normoactive bowel sounds. Absent: tenderness - *Routine Extremities Exam Absent: cyanosis, clubbing, edema - *Routine Skin Exam Present: warm. Absent: rash Assessment and Plan (1) Acute renal insufficiency Current visit: Yes Status: Acute Category: Medical Code(s): N28.9 - Disorder of kidney and ureter, unspecified (2) Dehydration Current visit: Yes Status: Acute Category: Medical Code(s): E86.0 - Dehydration (3) Frequent falls Current visit: Yes Status: Acute Category: Medical Code(s): R29.6 - Repeated falls (4) Noncompliance with medication regimen Current visit: Yes Status: Chronic Category: Medical Code(s): Z91.14 - Patient's other noncompliance with medication regimen (5) Hypothyroidism Current visit: Yes Status: Acute Category: Medical Code(s): E03.9 - Hypothyroidism, unspecified (6) Dementia Current visit: Yes Status: Acute Category: Medical Code(s): F03.90 - Unspecified dementia without behavioral disturbance - Assessment and plan all Dx Assessment and Plan for all problems:: We will repeat labs this morning. Patient's mental status has improved. Will discuss further care with Dr. norwood.
[2019-01-01 09:46] LABS: Basophils % 0.4 % (0.1-2.0); Eosinophils # 0.2 K/mm3 (0.0-0.4); Eosinophils % 2.3 % (0.1-12.0); Hematocrit 34.6 % (37.0-47.0); Hemoglobin 11.1 g/dL (12.2-16.2); Lymphocytes # 1.5 K/mm3 (0.7-4.5); Lymphocytes % 20.9 % (10-50); Mean Corpuscular Volume 90.7 fl (81-99); Mean Platelet Volume 7.8 fl (7.4-10.4); Monocytes # 0.3 K/mm3 (0.1-1.0); Neutrophils # 5.1 K/mm3 (1.8-7.8); Neutrophils % 72.4 % (37.0-80.0); Platelet Count 321 K/mm3 (142-424); Red Blood Count 3.82 M/mm3 (4.20-5.40); Red Cell Distribution Width 13.7 % (11.5-17.5)
[2019-01-01 10:11] LABS: Albumin Level 3.2 gm/dL (3.4-5.0); Albumin/Globulin Ratio 0.9 (1.1-1.8); Bilirubin,Total 0.4 mg/dL (0.2-1.0); Globulin 3.7 gm/dl (1.3-3.2); Total Protein,Serum 6.9 gm/dL (6.4-8.2)
--- NOTE | 2019-01-01 12:19 | Discharge Summary ---
General - General Admission date:: 12/29/18 Discharge date: 01/01/19 HPI HPI: Ms. Garcia is an 88 year old white female with a history of hypertension, anemia, neuropathy and depression. She was brought to the ED because of progressive weakness and decline over the last week with multiple falls over the last 2 days. In the ED she had no complaint of pain. Patient denies having shortness of breath, chest pain,abdominal pain, neck pain or lower back pain. She denies having fever, chills, cough or dysuria. She denies having hemoptysis, hematemesis, coffee-ground emesis or melanotic stool. Patient states that she was having difficulty with just moving her arms and her legs. Her daughter who arranges her medicine discovered that her diuretics were out many days before time. Currently the patient lives with her son. Hospital Course Hospital Course: Care management was consulted to look at discharge planning and physical therapy was consulted as well. Her renal function was elevated, therefore gentle hydration was continued. Mirapex was also added for imbalance. By the next morning, she was very confused and Dr. Edward felt it may be the Mirapex, therefore the dose was decreased. Her mental status did improve. She was able to walk with her walker and participate with physical therapy. They felt she was appropriate for rehab placement once medically stable. She had an echo show ing biatrial enlargement but her EF was 55%. Her renal function did improve. She had a left carotid bruit therefore a carotid ultrasound was ordered and it showed 20 to 49% stenosis of the right internal carotid artery and left internal carotid artery. By 01/01/2019 her mentation had improved significantly. It was felt she was stable to be discharged to [facility] for continued rehab. Objective Vital signs: Temp Pulse Resp BP Pulse Ox 97.5 F L 85 16 161/69 H 99 01/01/19 08:00 01/01/19 08:00 01/01/19 08:00 01/01/19 08:00 01/01/19 08:00 Narrative: - Constitutional no acute distress Comments: She is sitting up in the bed eating her breakfast. She appears comfortable. - *Routine HEENT Exam Head: Present: normocephalic, atraumatic Eye: Absent: PERRL (Right pupil is greater than the left; she has had an injury to the right eye in the remote past), conjunctival icterus, scleral injection ENT: Present: mucous membranes moist, oropharynx clear - *Routine Neck Exam Present: carotid bruit. Absent: lymphadenopathy (Left), thyromegaly - *Routine Respiratory Exam Present: CTA bilaterally (Anteriorly and posteriorly) - *Routine Cardiovascular Exam Present: RRR - *Routine Abdominal Exam Present: soft, normoactive bowel sounds. Absent: tenderness, distended - *Routine Extremities Exam Absent: edema, calf tenderness - *Routine Neurological Exam Present: alert Results Labs on day of discharge: Labs from last 24 hours 01/01/19 01/01/19 09:25 09:25 WBC 7.0 RBC 3.82 L Hgb 11.1 L Hct 34.6 L MCV 90.7 MCH 29.0 MCHC 32.0 RDW 13.7 Plt Count 321 D MPV 7.8 Neut % (Auto) 72.4 Lymph % (Auto) 20.9 [place]oun % (Auto) 4.0 Eos % (Auto) 2.3 Baso % (Auto) 0.4 Neut # (Auto) 5.1 Lymph # (Auto) 1.5 [place]oun # (Auto) 0.3 Eos # (Auto) 0.2 Baso # (Auto) 0.0 Sodium 140 Potassium 4.0 Chloride 106 Carbon Dioxide 23 Anion Gap 15.0 BUN 22 H D Creatinine 1.14 H D Estimated Creat Clear 27 Estimated GFR 45 L Est GFR ( Amer) 55 L D Glucose 96 Calcium 9.0 Total Bilirubin 0.4 AST 32 ALT 16 Alkaline Phosphatase 101 Total Protein 6.9 Albumin 3.2 L Globulin 3.7 H Albumin/Globulin Ratio 0.9 L DS: Diagnosis - Discharge Diagnosis (1) Acute renal insufficiency Status: Acute (2) Dehydration Status: Acute (3) Frequent falls Status: Acute (4) Noncompliance with medication regimen Status: Chronic (5) Hypothyroidism Status: Acute (6) Dementia Status: Acute Discharge Plan - Patient Discharge Instructions Patient Instructions: Anemia, DI for Kidney Failure, DI for Dehydration -- Adult, How to Prevent Falls - Follow up Plan Home Medications: Home Medications Medication Instructions Recorded Confirmed Type Ferrous Sulfate 325 mg PO BID 11/25/17 12/28/18 History Furosemide [Furosemide 20mg Tab] 20 mg PO BID 11/25/17 12/28/18 History Potassium Chloride [Klor-Con] 20 meq PO DAILY 11/30/18 12/28/18 History Aspirin [Aspirin 81mg chewable 81 mg PO DAILY tab.chew 12/10/18 12/28/18 Rx tab] Levothyroxine Sodium 25 mcg PO DAILY #30 tab 12/10/18 12/28/18 Rx [Levothyroxine 25mcg (0.025mg) Tab] Cyanocobalamin (Vitamin B-12) 1,000 mcg PO DAILY 12/29/18 12/29/18 History [Vitamin B-12 1000mcg Tablet] Lisinopril [Zestril 2.5mg Tablet] 2.5 mg PO DAILY 12/29/18 12/29/18 History Pramipexole Di-HCl [Mirapex 0.125 mg PO BID #60 tab 01/01/19 Rx 0.125mg tablet] predniSONE [Deltasone 20mg 20 mg PO DAILY #30 tab 01/01/19 Rx tablet] Prescriptions/Medication Reconciliation: New predniSONE [Deltasone 20mg tablet] 20 mg PO DAILY #30 tab Pramipexole Di-HCl [Mirapex 0.125mg tablet] 0.125 mg PO BID #60 tab Continued Furosemide [Furosemide 20mg Tab] 20 mg PO BID Ferrous Sulfate 325 mg PO BID Potassium Chloride [Klor-Con] 20 meq PO DAILY Aspirin [Aspirin 81mg chewable tab] 81 mg PO DAILY tab.chew Levothyroxine Sodium [Levothyroxine 25mcg (0.025mg) Tab] 25 mcg PO DAILY #30 tab Lisinopril [Zestril 2.5mg Tablet] 2.5 mg PO DAILY Cyanocobalamin (Vitamin B-12) [Vitamin B-12 1000mcg Tablet] 1,000 mcg PO DAILY Discontinued Gabapentin [Gabapentin 100mg Cap] 200 mg PO HS Citalopram Hydrobromide [Celexa 10mg Tablet] 10 mg PO DAILY Benzonatate [Benzonatate 200mg Cap] 200 mg PO TID PRN PRN Reason: Cough predniSONE [Prednisone 2.5mg Tab] 2.5 mg PO DAILY Cetirizine HCl [Zyrtec] 10 mg PO DAILY PRN PRN Reason: allergies Meclizine HCl [Meclizine 12.5mg Tab] 12.5 mg PO TIDP PRN PRN Reason: Dizziness Sulfamethoxazole/Trimethoprim [Bactrim DS tablet] 1 each PO BID
== END 2019-01-01 14:26 | DRG 641 ==
LOC: 2ND 14:56 → ER 14:56 → 2ND 18:15
PROVIDERS: ADMIT Family Medicine; ATTEND Family Medicine
CPT/HCPCS: 36415; 80048; 80053; 82550; 82553; 82962; 84439; 84443; 84484; 85025; 93005; 93306; 93880; 96365; 97116; 97162; 97165; 97535; 99285; G0378